=== PATIENT | female | born 1955 | race Caucasian/White ===

== ENCOUNTER 2021-08-22 11:56 | Inpatient (IN) ==
--- NOTE | 2021-08-22 13:36 | Emergency Department Note ---
Impression & Plan Pulmonary edema, Hypoxia ED Provider Note NAME: MONIKA HAGAN AGE: 66 SEX: F : 1955 ARRIVES VIA: Walk-In INFORMANT: Patient, ED PROVIDER(S): Mitesh Fleming DO CHIEF COMPLAINT: Shortness of breath HPI: The patient is a 66-year-old female who was sent to the emergency department from [facility] for evaluation from the pulmonary office. The patient was being seen there because of ongoing symptoms which have worsened since Braulio of last year. She has had multiple tests including echocardiogram as well as pulmonary biopsy. No definite cause for the patient's shortness of breath could be found. The patient was taking all her medications when she was prescribed. According to her consult today she does have a history of hypertension as well as left bundle branch block. She also has a history of COPD and emphysema with tobacco use. The patient denies having any chest pain at this time. She states she has had some lower extremity swelling which is not new but her significant other states that may be worsened compared to previous. She was noted today at the office to have significant desaturation into the 80s despite having supplemental oxygen. She was sent to the emergency department f or evaluation. ROS: See above HPI for pertinent positives & negatives. A total of 10 systems reviewed and were otherwise negative. PAST MEDICAL HISTORY: See Below PAST SURGICAL HISTORY: See Below FAMILY HISTORY: See Below SOCIAL HISTORY: See Below HOME MEDICATIONS: See Below ALLERGIES: See Below VITALS: See Below PHYSICAL EXAMINATION: GENERAL: Patient is awake alert in no acute distress patient is resting comfortably and showing no signs of anxiety EYES: The conjunctivae are clear. The pupils are round and reactive. EARS, NOSE, MOUTH AND THROAT: The nose is without any evidence of any deformity. Mucous membranes are moist. Tongue is midline. NECK: The neck is nontender and supple. RESPIRATORY: Diminished breath sounds are noted throughout. There is wheezing in both upper lung price. CARDIOVASCULAR: Regular rate and rhythm noted there no murmurs rubs or gallops normal S1 normal S2. GASTROINTESTINAL: The abdomen is soft. Abdomen is nontender. MUSCULOSKELETAL/EXTREMITIES: There is no evidence of gross deformity full range of motion is noted in the hips and shoulders. SKIN: Skin is warm and dry. There was mild pedal edema bilaterally. NEUROLOGIC: Patient is awake alert and oriented x3. MEDICAL DECISION MAKING: The patient is a 66-year-old female who presented to the emergency department for an evaluation of difficulty breathing. The patient was seen at the comptometer operator office at [facility] and was sent to the emergency department for further evaluation. The patient was found to have significant hypoxia. She does wear supplemental oxygen but needed escalating amounts of supplemental oxygen to maintain acceptable saturation. I discussed the patient's laboratory and radiographic studies with her. I also discussed the patient's condition with the on-call [facility] hospitalist group. They have agreed to evaluate the patient in the emergency department for further management and disposition. She was treated with Lasix in the emergency department. Triage Nursing notes reviewed. Prior medical records reviewed Vital Signs: reviewed and remarkable for hypoxia and elevated blood pressure. Differential diagnosis: Reactive airway disease, pneumonia, pneumothorax, COPD, CHF, infections, card iac ischemia, pulmonary embolism, musculoskeletal, gastrointestinal, as well as other pathologies. ER treatment provided: See below Diagnostics interpreted by me: ECG: EKG was obtained in the emergency department. My interpretation is sinus rhythm at 70 bpm. There is no ectopy. Left bundle branch block pattern was appreciated. No previous tracing was available. Cardiac Monitoring: An order was placed for continuous cardiac monitoring. The monitor shows a rate of 78 bpm with sinus rhythm. Laboratory studies: As stated above and show below. Imaging studies: See below Consultation(s): I discussed this case with Jeannie who is on-call for the [facility] hospitalist group. Past Med/Surg History Medical History Chronic heart failure with preserved ejection fraction Chronic respiratory failure with hypoxia COPD (chronic obstructive pulmonary disease) Dyslipidemia Emphysema lung Hiatal hernia History of pulmonary hypertension Hypertension Interstitial lung disease Left bundle branch block Pulmonary hypertension Tobacco use Surgical History History of bronchoscopy History of colonoscopy Family History Mother Diabetes Father Homicide Social History (Updated 08/22/21 @ 17:16 by Jeannie Triplett PA-C) Smoking Status: Former smoker Smoking End Date: 2015; Hx Alcohol Use: No Hx Substance Use: No Preferred Language: Niuean Communication Ability: Effective marital status: Current Living Situation: Spouse Feels Safe at Home: Yes Allergies Allergies Allergy/AdvReac Type Severity Reaction Status Date / Time No Known Allergies Allergy Unverified 08/22/21 15:45 Home Meds Home Medications Medication Instructions Recorded Confirmed albuterol sulfate 90 mcg/actuation 2 puff INHALATION QID PRN 08/22/21 08/22/21 aerosol inhaler aspirin 325 mg tablet 325 mg PO DAILY 08/22/21 08/22/21 atorvastatin 20 mg tablet 20 mg PO DAILY 08/22/21 08/22/21 carvedilol 3.125 mg tablet 3.125 mg PO BID 08/22/21 08/22/21 lisinopril 2.5 mg tablet 2.5 mg PO DAILY 08/22/21 08/22/21 multivitamin (Multiple Vitamins) 1 tab PO DAILY 08/22/21 08/22/21 omeprazole 20 mg capsule,delayed 20 mg PO DAILY 08/22/21 08/22/21 release prednisone 20 mg tablet 0 mg PO .DAILY UD 08/22/21 08/22/21 Results & Data (ED) Vital Signs Vital Signs - 24 hr 08/22/21 12:09 08/22/21 12:17 08/22/21 14:42 Temperature 36.9 C Temperature Source Temporal Artery Scan Pulse Rate 88 70 Pulse Rate [Apical] 70 Pulse Rhythm Regular Pulse Rhythm [Apical] Pulse Strength Normal Pulse Strength [Apical] Respiratory Rate 25 H 18 Respiratory Effort / Characteristics Short of Breath Non-Labored Respiratory Depth Respiratory Pattern Regular Blood Pressure 143/98 H Blood Pressure [Left Arm] 132/91 Blood Pressure Mean 113 Blood Pressure Mean [Left Arm] 104 Blood Pressure Position [Left Arm] Pulse Oximetry 86 L 94 100 Oxygen Delivery Method Nasal Cannula Nasal Cannula Room Air Oxygen Flow Rate 4 4 100 Sepsis Recent Fever Within 48 Hours No Sepsis New/Unexplained Change in Mental Status No Sepsis Action Taken by Nursing No Action Required 08/22/21 16:00 Temperature Temperature Source Pulse Rate Pulse Rate [Apical] 78 Pulse Rhythm Pulse Rhythm [Apical] Regular Pulse Strength Pulse Strength [Apical] Normal Respiratory Rate 20 Respiratory Effort / Characteristics Non-Labored Spontaneous Respiratory Depth Normal Respiratory Pattern Regular Blood Pressure Blood Pressure [Left Arm] 157/97 H Blood Pressure Mean Blood Pressure Mean [Left Arm] 117 Blood Pressure Position [Left Arm] Semi-fowlers Pulse Oximetry 98 Oxygen Delivery Method Nasal Cannula Oxygen Flow Rate 4 Sepsis Recent Fever Within 48 Hours Sepsis New/Unexplained Change in Mental Status Sepsis Action Taken by Halfway Medications Current Medication List: was personally reviewed by me Laboratory Data Attestation: I reviewed the patient's lab results. Result diagrams: 08/22/21 14:18 08/22/21 14:18 Lab Results 08/22/21 08/22/21 08/22/21 Range/Units 14:09 14:18 14:18 WBC 8.27 (4.8-10.8) K/uL RBC 5.68 H (4.2-5.4) M/uL Hgb 13.0 (12.0-16.0) g/dL Hct 44.3 (37-47) % MCV 78.0 L (80-100) fL MCH 22.9 L (25-34) pg MCHC 29.3 L (32-36) g/dL RDW Std Deviation 53.1 H (36.4-46.3) fL RDW Coeff of Dionte 18.7 H (11.5-14.5) % Plt Count 207 (130-400) K/uL MPV 10.8 H (7.4-10.4) fL Immature Gran % (Auto) 0.7 % Neut % (Auto) 84.1 % Lymph % (Auto) 13.7 % Wetzel % (Auto) 1.3 % Eos % (Auto) 0.0 % Baso % (Auto) 0.2 % Neut # (Auto) 6.95 H (1.4-6.5) K/uL Lymph # (Auto) 1.13 L (1.2-3.4) K/uL Wetzel # (Auto) 0.11 (0.11-0.59) K/uL Eos # (Auto) 0.00 (0-0.5) K/uL Baso # (Auto) 0.02 (0-0.2) K/uL Immature Gran # (Auto) 0.06 H (0.00-0.02) K/uL Absolute Nucleated RBC 0.22 H (0-0) K/uL Nucleated RBC % (auto) 2.7 % Polychromasia 1+ Anisocytosis Present PT 13.3 H (9.0-12.0) Seconds INR 1.3 H (0.9-1.1) APTT 23.0 (21.0-31.0) Seconds PTT Ratio 0.9 VBG pH (7.36-7.41) VBG pCO2 (38-50) mmHg VBG pO2 mmHg VBG HCO3 mmol/L VBG O2 Saturation % VBG Base Excess mEq/L Barometric Pressure mm/Hg Sodium (136-145) mmol/L Potassium (3.5-5.1) mmol/L Chloride (98-107) mmol/L Carbon Dioxide (21-32) mmol/L Anion Gap (3-11) BUN (6-23) mg/dl Creatinine (0.6-1.2) mg/dl Est Cr Clr Drug Dosing ml/min Est GFR ( Amer) ml/min Est GFR (Non-Af Amer) ml/min BUN/Creatinine Ratio (10-20) Glucose (70-99(Fasting)) mg/dl Calcium (8.5-10.1) mg/dl Magnesium (1.7-2.4) mg/dl Total Bilirubin (0.2-1.0) mg/dl AST (13-39) U/L ALT (7-52) U/L Alkaline Phosphatase (34-104) U/L Troponin I (0-0.04) ng/ml B-Natriuretic Peptide (0-100) pg/ml Total Protein (6.0-8.3) gm/dl Albumin (3.4-5.0) gm/dl Globulin (2.5-4.0) gm/dl Albumin/Globulin Ratio (0.9-2) Procalcitonin (0-0.5) ng/ml TSH (0.300-4.500) uIu/ml SARS-CoV-2, RNA, NAAT NEGATIVE (NEGATIVE) 08/22/21 08/22/21 08/22/21 Range/Units 14:18 14:18 14:18 WBC (4.8-10.8) K/uL RBC (4.2-5.4) M/uL Hgb (12.0-16.0) g/dL Hct (37-47) % MCV (80-100) fL MCH (25-34) pg MCHC (32-36) g/dL RDW Std Deviation (36.4-46.3) fL RDW Coeff of Dionte (11.5-14.5) % Plt Count (130-400) K/uL MPV (7.4-10.4) fL Immature Gran % (Auto) % Neut % (Auto) % Lymph % (Auto) % Wetzel % (Auto) % Eos % (Auto) % Baso % (Auto) % Neut # (Auto) (1.4-6.5) K/uL Lymph # (Auto) (1.2-3.4) K/uL Wetzel # (Auto) (0.11-0.59) K/uL Eos # (Auto) (0-0.5) K/uL Baso # (Auto) (0-0.2) K/uL Immature Gran # (Auto) (0.00-0.02) K/uL Absolute Nucleated RBC (0-0) K/uL Nucleated RBC % (auto) % Polychromasia Anisocytosis PT (9.0-12.0) Seconds INR (0.9-1.1) APTT (21.0-31.0) Seconds PTT Ratio VBG pH (7.36-7.41) VBG pCO2 (38-50) mmHg VBG pO2 mmHg VBG HCO3 mmol/L VBG O2 Saturation % VBG Base Excess mEq/L Barometric Pressure mm/Hg Sodium 135 L (136-145) mmol/L Potassium 4.4 (3.5-5.1) mmol/L Chloride 100 (98-107) mmol/L Carbon Dioxide 30 (21-32) mmol/L Anion Gap 5 (3-11) BUN 22 (6-23) mg/dl Creatinine 0.76 (0.6-1.2) mg/dl Est Cr Clr Drug Dosing 103.4 ml/min Est GFR ( Amer) 95.4 ml/min Est GFR (Non-Af Amer) 82.3 ml/min BUN/Creatinine Ratio 28.9 H (10-20) Glucose 135 H (70-99(Fasting)) mg/dl Calcium 8.5 (8.5-10.1) mg/dl Magnesium 1.9 (1.7-2.4) mg/dl Total Bilirubin 1.0 (0.2-1.0) mg/dl AST 33 (13-39) U/L ALT 30 (7-52) U/L Alkaline Phosphatase 67 (34-104) U/L Troponin I 0.04 (0-0.04) ng/ml B-Natriuretic Peptide (0-100) pg/ml Total Protein 7.5 (6.0-8.3) gm/dl Albumin 3.4 (3.4-5.0) gm/dl Globulin 4.1 H (2.5-4.0) gm/dl Albumin/Globulin Ratio 0.8 L (0.9-2) Procalcitonin < 0.05 (0-0.5) ng/ml TSH 1.176 (0.300-4.500) uIu/ml SARS-CoV-2, RNA, NAAT (NEGATIVE) 08/22/21 08/22/21 Range/Units 14:25 14:25 WBC (4.8-10.8) K/uL RBC (4.2-5.4) M/uL Hgb (12.0-16.0) g/dL Hct (37-47) % MCV (80-100) fL MCH (25-34) pg MCHC (32-36) g/dL RDW Std Deviation (36.4-46.3) fL RDW Coeff of Dionte (11.5-14.5) % Plt Count (130-400) K/uL MPV (7.4-10.4) fL Immature Gran % (Auto) % Neut % (Auto) % Lymph % (Auto) % Wetzel % (Auto) % Eos % (Auto) % Baso % (Auto) % Neut # (Auto) (1.4-6.5) K/uL Lymph # (Auto) (1.2-3.4) K/uL Wetzel # (Auto) (0.11-0.59) K/uL Eos # (Auto) (0-0.5) K/uL Baso # (Auto) (0-0.2) K/uL Immature Gran # (Auto) (0.00-0.02) K/uL Absolute Nucleated RBC (0-0) K/uL Nucleated RBC % (auto) % Polychromasia Anisocytosis PT (9.0-12.0) Seconds INR (0.9-1.1) APTT (21.0-31.0) Seconds PTT Ratio VBG pH 7.37 (7.36-7.41) VBG pCO2 49 (38-50) mmHg VBG pO2 75 mmHg VBG HCO3 28 mmol/L VBG O2 Saturation 94.8 % VBG Base Excess 2.1 mEq/L Barometric Pressure 735.8 mm/Hg Sodium (136-145) mmol/L Potassium (3.5-5.1) mmol/L Chloride (98-107) mmol/L Carbon Dioxide (21-32) mmol/L Anion Gap (3-11) BUN (6-23) mg/dl Creatinine (0.6-1.2) mg/dl Est Cr Clr Drug Dosing ml/min Est GFR ( Amer) ml/min Est GFR (Non-Af Amer) ml/min BUN/Creatinine Ratio (10-20) Glucose (70-99(Fasting)) mg/dl Calcium (8.5-10.1) mg/dl Magnesium (1.7-2.4) mg/dl Total Bilirubin (0.2-1.0) mg/dl AST (13-39) U/L ALT (7-52) U/L Alkaline Phosphatase (34-104) U/L Troponin I (0-0.04) ng/ml B-Natriuretic Peptide 1055 H (0-100) pg/ml Total Protein (6.0-8.3) gm/dl Albumin (3.4-5.0) gm/dl Globulin (2.5-4.0) gm/dl Albumin/Globulin Ratio (0.9-2) Procalcitonin (0-0.5) ng/ml TSH (0.300-4.500) uIu/ml SARS-CoV-2, RNA, NAAT (NEGATIVE) Administered Medications Discontinued Medications Furosemide (Furosemide 40 Mg/4 Ml Vial) 40 mg IV ONE ONE Stop: 08/22/21 15:26 Last Admin: 08/22/21 16:25 Dose: 40 mg Documented by: [id number] Imaging Data Radiologist's Impression: Chest X-Ray 08/22/21 12:13 XR chest 1V portable HISTORY: Shortness of breath COMPARISON: None. FINDINGS: No pneumothorax. Trace bilateral pleural fusions. The heart is enlarged. There is diffuse interstitial/vascular thickening with perihilar hazy airspace opacities. This favors moderate pulmonary edema. IMPRESSION: Above findings favor moderate pulmonary edema. A superimposed pneumonitis could also have a similar appearance in the appropriate clinical setting. ACT 112: Negative or not required by law. Electronically signed by: Chalino Wallace M.D. 08/22/2021 2:22 PM Discharge Plan Visit Data Chief Complaint: Shortness of Breath/Dyspnea Stated Complaint: SOB, BIOPSIES, SUSPECTED FLUID IN LUNGS ED Provider: Mitesh Fleming Discharge Problem: Pulmonary edema, Hypoxia Patient Disposition: Being Evaluated by Hospitalist
--- NOTE | 2021-08-22 14:23 | XRay Report ---
XR chest 1V portable HISTORY: Shortness of breath COMPARISON: None. FINDINGS: No pneumothorax. Trace bilateral pleural fusions. The heart is enlarged. There is diffuse i nterstitial/vascular thickening with perihilar hazy airspace opacities. This favors moderate pulmonar y edema. IMPRESSION: Above findings favor moderate pulmonary edema. A superimposed pneumonitis could also have a similar a ppearance in the appropriate clinical setting. ACT 112: Negative or not required by law. Electronically signed by: Chalino Wallace M.D. 08/22/2021 2:22 PM
[2021-08-22 14:27] LABS: Basophils # (auto) 0.02 K/uL (0-0.2); Basophils % (auto) 0.2 %; Hematocrit (blood only) 44.3 % (37-47); Immature Granulocytes # (auto) 0.06 K/uL (0.00-0.02); Immature Granulocytes % (auto) 0.7 %; Lymphocytes # (auto) 1.13 K/uL (1.2-3.4); Lymphocytes % (auto) 13.7 %; Mean Corpuscular Hemoglobin 22.9 pg (25-34); Mean Corpuscular Hgb Conc 29.3 g/dL (32-36); Mean Platelet Volume 10.8 fL (7.4-10.4); Monocytes # (auto) 0.11 K/uL (0.11-0.59); Monocytes % (auto) 1.3 %; Neutrophils # (auto) 6.95 K/uL (1.4-6.5); Neutrophils % (auto) 84.1 %; Nucleated RBC # (auto) 0.22 K/uL (0-0); Nucleated RBC % (auto) 2.7 %; Platelet Count 207 K/uL (130-400); RDW Coefficient of Variation 18.7 % (11.5-14.5); RDW Standard Deviation 53.1 fL (36.4-46.3); Red Blood Count 5.68 M/uL (4.2-5.4); White Blood Count 8.27 K/uL (4.8-10.8)
[2021-08-22 14:40] LABS: INR 1.3 (0.9-1.1); Partial Thromboplastin Ratio 0.9; Prothrombin Time 13.3 Seconds (9.0-12.0)
[2021-08-22 14:42] LABS: Anisocytosis Present; Polychromasia 1+
[2021-08-22 14:47] LABS: Base Excess VBG 2.1 mEq/L; Oxygen Saturation VBG 94.8 %; pH VBG 7.37 (7.36-7.41)
[2021-08-22 14:54] LABS: Albumin Globulin Ratio 0.8 (0.9-2); Albumin Level 3.4 gm/dl (3.4-5.0); BUN Creatinine Ratio 28.9 (10-20); Calcium 8.5 mg/dl (8.5-10.1); Creatinine Clr Calc Pharmacy 103.4 ml/min; Est GFR (African American) 95.4 ml/min; Est GFR (Non-African American) 82.3 ml/min; Globulin 4.1 gm/dl (2.5-4.0); Magnesium 1.9 mg/dl (1.7-2.4); Potassium 4.4 mmol/L (3.5-5.1); Total Protein 7.5 gm/dl (6.0-8.3)
[2021-08-22 14:56] LABS: Troponin I 0.04 ng/ml (0-0.04)
[2021-08-22] MEDS ORDERED: FUROSEMIDE 40 MG/4 ML VIAL IV ONE (15:25)
--- NOTE | 2021-08-22 16:50 | Electrocardiogram Report ---
Test Reason : Blood Pressure : / mmHG Vent. Rate : 078 BPM Atrial Rate : 078 BPM P-R Int : 124 ms QRS Dur : 130 ms QT Int : 398 ms P-R-T Axes : 072 011 138 degrees QTc Int : 453 ms Poor data quality, interpretation may be adversely affected Normal sinus rhythm Possible Left atrial enlargement Non-specific intra-ventricular conduction block T wave abnormality, consider lateral ischemia Abnormal ECG No previous ECGs available Confirmed by Asher Osman ([id number]) on 08/22/2021 4:50:27 PM Referred By: Confirmed By:Bharat Osman
--- NOTE | 2021-08-22 17:22 | History & Physical Report ---
Date of Service August 22, 2021 Assessment & Plan (1) Acute on chronic heart failure with preserved ejection fraction (HFpEF): (2) Acute and chronic respiratory failure with hypoxia: (3) Interstitial lung disease: (4) Hypertension: (5) Left bundle branch block: Plan: This a 66 yr old F who has a significant PMH of ILD on 4L of O2 with ext and 2 at HS, chronic hypoxic resp failure, Chronic HFpEF, Pulm HTN, COPD, former tobacco abuser, HTN, HLD, LBBB who presents to ED at referral of Pulm clinic 08/03 to hypoxia. Acute on chronic heart failure with preserved ejection fraction Acute on chronic Resp Failure with hypoxia admit to pcu Received 40mg IV lasix in ED, will give additional 40mgIV lasix in a.m. until re evaluated strict intake/output, daily weights, low Na diet will taper down prednisone to 20mg daily as may be contributing to retention ( PCP prescribed pred 40mg x 16 days; then 20mg x 15 days then 10mg x 15 days for generalized aches/pain/ILD) - starting 08/19 last echo 06/21 EF 55%, grade 1 diastolic dysfunction, pulmonary hypertension, elevated PASP, mild TR Monitor electrolytes Continue carvedilol and lisinopril consult cardiology cycle trop Interstitial lung disease Pro-Jimmy negative, likely noninfectious Following pulmonology, had bronchoscopy on 08/08 with negative cytology Etiology still unclear continue albuterol prn continue O2, chronically 2L at HS and 4L with exertion HTN HLD LBBB continue asa, statin, lisinopril, coreg Morbid obesity, BMI 47.3 encourage diet and lifestyle modifications DVT ppx: SQ Lovenox BID Dispo: pcu PCP: Sharon Castellanos FULL CODE Pt was seen and examined in collaboration with Dr. Giles, please see addendum The chart was completed utilizing [employer] voice recognition software. Grammatical errors, random word insertions, pronoun errors, and incomplete sentences are an occasional consequence of this system due to software limitations, ambient noise, and hardware issues. Any formal questions or concerns about the content, text, or information contained within the body of this dictation should be directly addressed to the provider for clarification. History of Present Illness Chief Complaint: Referred by pulm clinic 08/03 to hypoxia. Primary Care Provider: Babar Queen MD This a 66 yr old F who has a significant PMH of ILD on 4L of O2 with ext and 2 at HS, chronic hypoxic resp failure, Chronic HFpEF, Pulm HTN, COPD, former tobacco abuser, HTN, HLD, LBBB who presents to ED at referral of Pulm clinic 08/03 to hypoxia. Patient has been followed closely by pulmonology secondary to interstitial lung disease. She recently underwent bronchoscopy on 08/08 with negative cytology. Per patient the etiology of interstitial lung disease is not known. She states since June 2021 she has been having increasing difficulty breathing. She has had extensive work-up with pulmonology. Echo in June 2021 revealed preserved EF with diastolic dysfunction, pulmonary pretension and mild tricuspid rotation. States since June she has been having increased shortness of breath with exertion, increased lower extremity swelling and weight gain. In the past week she admits to 5 pound weight gain. Denies any orthopnea or PND, but states she is, "choking in her sleep." She denies any prior history of sleep apnea or being tested for sleep apnea. She complains of a wet cough that is nonproductive. This is chronic. She denies any fever, chills, sweats, lightheadedness, dizziness, chest pain, palpitations, hemoptysis, nausea, vomiting, abdominal pain, change in bowel or urinary habits. She was recently seen by PCP on 08/19 who prescribed her a prolonged prednisone taper. Currently she is on 40 mg daily. She states she was started on prednisone due to generalized aches and pains and to, "help with my lungs." She has been compliant with her medications. She does recall in the past requiring to take Lasix for 1 week, but not on a regular basis. In ED patient made hemodynamically stable although she was hypoxic. She required 4 L of oxygen. Chest x-ray consistent with moderate pulmonary edema. She elevated proBNP at 1055. Her initial troponin was negative. She received 40 mg IV Lasix in ED. Allergies Allergy/AdvReac Type Severity Reaction Status Date / Time No Known Allergies Allergy Unverified 08/22/21 15:45 Home Medications Medication Instructions Recorded Confirmed Type albuterol sulfate 90 mcg/actuation 2 puff INHALATION QID PRN 08/22/21 08/22/21 History aerosol inhaler aspirin 325 mg tablet 325 mg PO DAILY 08/22/21 08/22/21 History atorvastatin 20 mg tablet 20 mg PO DAILY 08/22/21 08/22/21 History carvedilol 3.125 mg tablet 3.125 mg PO BID 08/22/21 08/22/21 History lisinopril 2.5 mg tablet 2.5 mg PO DAILY 08/22/21 08/22/21 History multivitamin (Multiple Vitamins) 1 tab PO DAILY 08/22/21 08/22/21 History omeprazole 20 mg capsule,delayed 20 mg PO DAILY 08/22/21 08/22/21 History release prednisone 20 mg tablet 0 mg PO .DAILY UD 08/22/21 08/22/21 History Past Med/Surg History Medical History Chronic heart failure with preserved ejection fraction Chronic respiratory failure with hypoxia COPD (chronic obstructive pulmonary disease) Dyslipidemia Emphysema lung Hiatal hernia History of pulmonary hypertension Hypertension Interstitial lung disease Left bundle branch block Pulmonary hypertension Tobacco use Surgical History History of bronchoscopy History of colonoscopy Family History Mother Diabetes Father Homicide Social History (Updated 08/22/21 @ 17:16 by Jeannie Triplett PA-C) Smoking Status: Former smoker Smoking End Date: 2015; Hx Alcohol Use: No Hx Substance Use: No Preferred Language: [place]amb[place] Communication Ability: Effective marital status: Current Living Situation: Spouse Feels Safe at Home: Yes Review of Systems Review of Systems: All systems reviewed & are unremarkable except as noted in HPI & below Physical Exam Physical Exam: Constitutional: WD/WN, Obese, F, dysnea w/ conversation, vitals as above, NAD, sitting up in bed, pleasant, conversing easily Head: Normocephalic, Atraumatic Eyes: PERRL, conjunctivae normal, anicteric sclerae ENMT: external ear and nose normal, oropharynx normal Neck: trachea midline, no thyromegaly normal visual inspection Respiratory: normal respiratory effort, course breathsounds throughout with exp wheeze/rales, on 4L of O2 via NC. Normal insp/exp effort, no accessory muscle use Cardiovascular: RRR, no murmur, b/l lower ext edema +2, b/l varicosities noted Vessels: no JVD or carotid bruit Chest: normal inspection of chest Abdomen: normal bowel sounds, soft, nontender, no hepatosplenomegaly Musculoskeletal: no cyanosis or clubbing, extremities motor strength 5/5 Skin: no rashes, warm and dry normal turgor Neurologic: PERRL, EOMI, accommodation nl, no face palsy, no dysarthria CN's II-XI intact bilaterally and moves all extremities Psychiatric: A+Ox3, euthymic affect Lymphatic: no cervical or axillary lymphadenopathy : deferred Results & Data Results & Data ([facility]) Vital Signs (Past 12 Hours) Vital Signs Temp Pulse Pulse Resp BP BP Pulse Ox 08/22/21 16:00 78 20 157/97 H 98 08/22/21 14:42 70 70 18 132/91 100 08/22/21 12:17 94 08/22/21 12:09 36.9 C 88 25 H 143/98 H 86 L Diagnostic Findings Chest X-Ray 08/22/21 12:13 XR chest 1V portable HISTORY: Shortness of breath COMPARISON: None. FINDINGS: No pneumothorax. Trace bilateral pleural fusions. The heart is enlarged. There is diffuse interstitial/vascular thickening with perihilar hazy airspace opacities. This favors moderate pulmonary edema. IMPRESSION: Above findings favor moderate pulmonary edema. A superimposed pneumonitis could also have a similar appearance in the appropriate clinical setting. ACT 112: Negative or not required by law. Electronically signed by: Chalino Wallace M.D. 08/22/2021 2:22 PM Medications Administered Medication List Discontinued Medications Furosemide (Furosemide 40 Mg/4 Ml Vial) 40 mg IV ONE ONE Stop: 08/22/21 15:26 Last Admin: 08/22/21 16:25 Dose: 40 mg Documented by: [id number] ECG Rate (beats per minute): 78 Rhythm: normal sinus Findings: + LBBB and + T-wave inversion COVID-19 Results Results COVID-19 Adm Lab Results: RBC 5.68 M/uL (4.2-5.4) H 08/22/21 WBC 8.27 K/uL (4.8-10.8) 08/22/21 Hgb 13.0 g/dL (12.0-16.0) 08/22/21 Hct 44.3 % (37-47) 08/22/21 Plt Count 207 K/uL (130-400) 08/22/21 Neutrophils (%) (Auto) 84.1 % 08/22/21 Lymphocytes (%) (Auto) 13.7 % 08/22/21 Monocytes # (Auto) 0.11 K/uL (0.11-0.59) 08/22/21 Eosinophils # (Auto) 0.00 K/uL (0-0.5) 08/22/21 Immature Granulocyte % (Auto) 0.7 % 08/22/21 Neutrophils # (Auto) 6.95 K/uL (1.4-6.5) H 08/22/21 Lymphocytes # (Auto) 1.13 K/uL (1.2-3.4) L 08/22/21 Monocytes # (Auto) 0.11 K/uL (0.11-0.59) 08/22/21 Eosinophils # (Auto) 0.00 K/uL (0-0.5) 08/22/21 Basophils # (Auto) 0.02 K/uL (0-0.2) 08/22/21 Immature Granulocyte # (Auto) 0.06 K/uL (0.00-0.02) H 08/22/21 Polychromasia 1+ 08/22/21 Anisocytosis Present 08/22/21 Na 135 mmol/L (136-145) L 08/22/21 K 4.4 mmol/L (3.5-5.1) 08/22/21 Cl 100 mmol/L (98-107) 08/22/21 CO2 30 mmol/L (21-32) 08/22/21 Anion Gap 5 (3-11) 08/22/21 BUN 22 mg/dl (6-23) 08/22/21 Creatinine 0.76 mg/dl (0.6-1.2) 08/22/21 BUN/Creatinine Ratio 28.9 (10-20) H 08/22/21 Glucose Level 135 mg/dl (70-99(Fasting)) H 08/22/21 Ca 8.5 mg/dl (8.5-10.1) 08/22/21 Total Bilirubin 1.0 mg/dl (0.2-1.0) 08/22/21 AST/SGOT 33 U/L (13-39) 08/22/21 ALT/SGPT 30 U/L (7-52) 08/22/21 Alkaline Phosphatase 67 U/L (34-104) 08/22/21 Total Protein 7.5 gm/dl (6.0-8.3) 08/22/21 Albumin 3.4 gm/dl (3.4-5.0) 08/22/21 Globulin 4.1 gm/dl (2.5-4.0) H 08/22/21 Albumin/Globulin Ratio 0.8 (0.9-2) L 08/22/21 Troponin I 0.04 ng/ml (0-0.04) 08/22/21 Procalcitonin < 0.05 ng/ml (0-0.5) 08/22/21 PTT 23.0 Seconds (21.0-31.0) 08/22/21 INR 1.3 (0.9-1.1) H 08/22/21 SARS-CoV-2, RNA, NAAT NEGATIVE (NEGATIVE) 08/22/21 Chest X-Ray 08/22/21 Code Status & VTE Plan Code Status FULL CODE VTE Prophylaxis Plan VTE Prophylaxis will be ordered: Yes Supervising Physician Co-Signing Physician Notes Patient is a 66-year-old female with history of interstitial lung disease, chronic oxygen dependency, COPD, tobacco use disorder, chronic diastolic heart failure and other medical problems presents with history of worsening shortness of breath, presents for evaluation on referral from pulmonary clinic secondary to hypoxia. Patient is on chronic oxygen, 2 L at rest and 4 L with activity. Patient was evaluated by pulmonary clinic and had recent bronchoscopy which was negative for cytology. Patient reports that she has been having worsening shortness of breath, associated with leg swelling and weight gain. Patient's PCP thought that she had sarcoidosis (as per patient) and she was started on a long course of prednisone taper. Please review HPI for complete details of presentation. Blood work suggestive of INR 1.3, sodium 135, glucose 135, BNP 1055, normal procalcitonin levels. Chest x-ray showed findings suggestive of moderate pulmonary edema. On exam patient is morbidly obese, no apparent distress, normocephalic atraumatic, EOMI, coarse decreased breath sounds, scattered wheezes, S1-S2, bilateral lower extremity edema present, abdomen soft, nontender, normal bowel sounds, alert, awake, oriented, grossly no focal deficits. Patient is admitted for management of acute on chronic respiratory failure with hypoxia. Likely multifactorial secondary to acute diastolic heart failure, interstitial lung disease. Agree with starting on IV diuretics 40 mg Lasix daily. Monitor I's and O's, daily weight, low-sodium diet. Cardiology evaluation requested. Trend cardiac enzymes. Will need further evaluation by pulmonology/rheumatology help etiology of interstitial lung disease. Will need 2 step prior to discharge. Prolonged steroids likely contributing to above symptoms as well. Will taper down steroids as able. I personally reviewed the record. Patient is interviewed and examined at bedside. Patient's care is coordinated with Jeannie Triplett PA-C. Please refer to the documentation above for details of patient's presentation and for discussion of other issues.
[2021-08-22] MEDS ORDERED: POLYETHYLENE (MIRALAX) 17 GM PACK PO PRN (18:21)
[2021-08-22] MEDS ORDERED: CARBOHYDRATES FOR HYPOGLYCEMIA PO PRN (18:21)
[2021-08-22] MEDS ORDERED: DEXTROSE 50% 50 ML SYRINGE IV PRN (18:21)
[2021-08-22] MEDS ORDERED: GLUCOSE 40% GEL 15 GM TUBE PO PRN (18:21)
[2021-08-22] MEDS ORDERED: ACETAMINOPHEN 325 MG TAB PO PRN (18:21)
[2021-08-22] MEDS ORDERED: GLUCOSE 10 TABS/TUBE PO PRN (18:21)
[2021-08-22] MEDS ORDERED: ALUMINUM/MAGNESIUM SUSP 30 ML UDC PO PRN (18:21)
[2021-08-22] MEDS ORDERED: ONDANSETRON INJ 2 MG/ML 2 ML VIAL IV PRN (18:21)
[2021-08-22] MEDS ORDERED: ALBUTEROL HFA 8 GM INHALER INH PRN (18:21)
[2021-08-22] MEDS ORDERED: GLUCAGON FOR INJ 1 MG VIAL SQ PRN (18:21)
[2021-08-22] MEDS ORDERED: MAGNESIUM HYDROXIDE SUSP 30 ML UDC PO PRN (18:21)
[2021-08-22] MEDS: carvediloL 3.125 MG TAB PO SCH (21:18)
[2021-08-22] MEDS: INSULIN ASPART PER UNIT SC SCH (21:24)
[2021-08-22] MEDS: ENOXAPARIN INJ 40 MG/0.4 ML SYR SQ SCH (21:26)
[2021-08-23 05:50] LABS: Hematocrit (blood only) 43.5 % (37-47); Hemoglobin 12.6 g/dL (12.0-16.0); Mean Corpuscular Volume 79.5 fL (80-100); Nucleated RBC # (auto) 0.11 K/uL (0-0); Nucleated RBC % (auto) 1.1 %; Platelet Count 199 K/uL (130-400); RDW Coefficient of Variation 18.9 % (11.5-14.5); Red Blood Count 5.47 M/uL (4.2-5.4); White Blood Count 9.77 K/uL (4.8-10.8)
[2021-08-23 06:11] LABS: BUN Creatinine Ratio 27.9 (10-20); Calcium 8.5 mg/dl (8.5-10.1); Creatinine Clr Calc Pharmacy 115.6 ml/min; Est GFR (African American) 106.4 ml/min; Est GFR (Non-African American) 91.8 ml/min; Potassium 3.8 mmol/L (3.5-5.1)
[2021-08-23] MEDS: PANTOprazole 40 MG TAB PO SCH (08:19)
[2021-08-23] MEDS: carvediloL 3.125 MG TAB PO SCH (08:20)
[2021-08-23] MEDS: ASPIRIN 325 MG ECTAB PO SCH (08:20)
[2021-08-23] MEDS: MULTIVITAMIN TAB PO SCH (08:20)
[2021-08-23] MEDS: ATORVASTATIN 20 MG TAB PO SCH (08:20)
[2021-08-23] MEDS: predniSONE 20 MG TAB PO SCH (08:21)
[2021-08-23] MEDS: FUROSEMIDE 40 MG/4 ML VIAL IV SCH (08:21)
[2021-08-23] MEDS: ENOXAPARIN INJ 40 MG/0.4 ML SYR SQ SCH ×2 (08:25→20:38)
[2021-08-23] MEDS: INSULIN ASPART PER UNIT SC SCH ×4 (09:00→20:37)
[2021-08-23] MEDS ORDERED: lisinopril 2.5 MG TAB PO SCH (09:00)
--- NOTE | 2021-08-23 09:28 | Cardiology Consultation ---
Date of Consultation August 23, 2021 Assessment & Plan (1) Interstitial lung disease: (2) Chronic respiratory failure with hypoxia: (3) Tobacco use: (4) Chronic heart failure with preserved ejection fraction: (5) History of pulmonary hypertension: (6) Left bundle branch block: (7) Hypoxia: Complex 66 year old female referred for hospitalization due to concern regarding acute on chronic decompensated heart failure with preserved LV systolic function. Administration of 40 mg IV Lasix on presentation resulted in 2000 mL diuresis, without improvement in symptoms. Examination notable for possible mild volume overload though certainly not plethoric. Initial troponin I was 0.04 ng/mL then 0.12 ng/mL without symptoms suggestive of an acute coronary syndrome. Main issue appears to be underlying significant pulmonary disease. Recommendations: Serial cardiac enzymes Resting echocardiogram Cautious diuresis with IV furosemide, possibly adding low dose spironolactone pending potassium needs Change carvedilol to metoprolol succinate 25 mg once per day Change SUNNY inhibitor therapy (lisinopril) to losartan with dosage escalated for additional blood pressure control. Recommend further evaluation/treatment of the interstitial lung disease Recommend outpatient sleep medicine evaluation. Supervising Physician Co-Signing Physician Notes Patient seen and examined at the bedside. Respiratory status improved with intravenous diuretic therapy. Fluid balance -4200 cc since admission. Carries diagnosis of interstitial lung disease and chronic hypoxia. Denies orthopnea or PND. Notes recent weight gain and worsening edema. is present at bedside. Offers no additional concerns/complaints. PE: VSS. Gen: NAD. AAOx3. Heart: Regular rhythm, normal S1-S2. No murmur. Lungs: Diffuse crackles in all lung price bilaterally. Mild end expiratory wheeze. Extremities: 1+ bilateral ankle and pretibial edema. Neurologic: No focal deficit. A/P: Agree with above PA-C history, physical exam, assessment and plan. Continue cautious diuresis with IV furosemide. Serum bicarbonate trending upward slightly after IV Lasix. Monitor daily weight, GFR, and electrolytes. Agree with transition of carvedilol to metoprolol due to underlying interstitial lung disease with expiratory wheeze. Consider pulmonary evaluation regarding interstitial lung disease. History of Present Illness Reason for Consultation: Acute on chronic heart failure with preserved left ventricular systolic function Requesting Physician: Ioana Attending Physician: Jonathon History of Present Illness Mrs. Karli Alexander is a very pleasant 66-year-old female who was referred to the [facility] Emergency Room by [facility] due to worsening shortness of breath, hypoxia, volume overload. Cardiology consultation requested due to acute on chronic heart failure with preserved LV systolic function. History notable for chronic oxygen dependent interstitial and obstructive lung disease with history of tobacco abuse, chronic diastolic heart failure, history of systolic congestive heart failure with a left bundle branch block. Diagnostic cardiac catheterization performed by Dr. Roach on December 09, 2008 revealing minimal luminal irregularities, LVEF 45%, mildly elevated LVEDP. Resting echocardiography last on June 22, 2021 revealed normal LV systolic function, ejection fraction 55 to 59%, with normal LV wall motion, grossly normal RV systolic function, grade 1 diastolic dysfunction, mild tricuspid regurgitation, mild pulmonary hypertension with a pulmonary artery systolic pressure of 36 to 46 mmHg. Patient notes pneumonia in June. Notes being treated with two courses of prednisone. Notes 15 pound weight gain since June. She did not believe there was a significant amount of fluid however she notes that her was concerned regarding increased fluid retention in her lower extremities. Patient believes the fluid is predominantly in her abdomen. She has a predominantly nonproductive cough that is worse at night, improved with the addition prior addition of supplemental oxygen therapy. She denies PND. She has chronic stable orthopnea. On questioning, witnessed snoring and hypersomnolence noted, without prior sleep apnea evaluation. No chest pain. Notes palpitations on exertion are promptly aided by rest, significantly better when utilizing supplemental oxygen. Notes lightheadedness/dizziness with significant coughing spells, without near syncope or syncope. No current fevers or chills. No melena or hematochezia. IV furosemide prescribed, 40 mg daily, with 2 L diuresis recorded, without change in symptoms. Allergies Allergy/AdvReac Type Severity Reaction Status Date / Time No Known Allergies Allergy Unverified 08/22/21 15:45 Home Medications Medication Instructions Recorded Confirmed Type albuterol sulfate 90 mcg/actuation 2 puff INHALATION QID PRN 08/22/21 08/22/21 History aerosol inhaler aspirin 325 mg tablet 325 mg PO DAILY 08/22/21 08/22/21 History atorvastatin 20 mg tablet 20 mg PO DAILY 08/22/21 08/22/21 History carvedilol 3.125 mg tablet 3.125 mg PO BID 08/22/21 08/22/21 History lisinopril 2.5 mg tablet 2.5 mg PO DAILY 08/22/21 08/22/21 History multivitamin (Multiple Vitamins) 1 tab PO DAILY 08/22/21 08/22/21 History omeprazole 20 mg capsule,delayed 20 mg PO DAILY 08/22/21 08/22/21 History release prednisone 20 mg tablet 0 mg PO .DAILY UD 08/22/21 08/22/21 History Patient History Medical History Chronic heart failure with preserved ejection fraction Chronic respiratory failure with hypoxia COPD (chronic obstructive pulmonary disease) Dyslipidemia Emphysema lung Hiatal hernia History of pulmonary hypertension Hypertension Interstitial lung disease Left bundle branch block Pulmonary hypertension Tobacco use Surgical History History of bronchoscopy History of colonoscopy Family History Mother Diabetes Father Homicide Social History Smoking Status: Former smoker Smoking End Date: 2015; Hx Alcohol Use: No Hx Substance Use: No Preferred Language: Citizen Of [place] Communication Ability: Effective Research Home Economist Required: No Beliefs That Will Affect Care: None marital status: Current Living Situation: Spouse Other Information That Helps Us Care for You: No Feels Safe at Home: Yes Safety Concerns: Feels Safe At This Time Assistive Devices: Oxygen - Continuous Review of Systems Review of Systems: Complete review of systems is otherwise as stated above, negative, noncontributory. Physical Exam Physical Exam: General: A&Ox3. NAD. Elevated BMI. HENT: Normocephalic. Atraumatic. Eyes: PER. Conjunctiva pink, sclera clear. Neck: No carotid bruits. I could not appreciate any JVD or HJR n Heart: Regular at 90 bpm. No murmur. No rub. Lungs: Diminished. Decreased. Diffuse dry crackles. No wheeze. SPO2 was 89% on supplemental oxygen Abdomen: +BS. Somewhat firm. Nontender. No masses or organomegaly. Extremities: Chronic varicosities. Minimal edema. No clubbing. No cyanosis. Limited neurological examination is without focal deficits. Pulses: radial=2/4, posterior tibial=1/4. Results & Data ([facility]) Vital Signs (Past 12 Hours) Vital Signs Pulse Resp BP Pulse Ox 08/23/21 04:22 79 22 147/88 H 93 08/23/21 00:00 79 20 137/83 97 08/22/21 22:00 79 20 143/81 H 98 Laboratory Results Laboratory Results - last 24 hr 08/22/21 08/22/21 08/22/21 14:09 14:18 14:18 WBC 8.27 RBC 5.68 H Hgb 13.0 Hct 44.3 MCV 78.0 L MCH 22.9 L MCHC 29.3 L RDW Std Deviation 53.1 H RDW Coeff of Dionte 18.7 H Plt Count 207 MPV 10.8 H Immature Gran % (Auto) 0.7 Neut % (Auto) 84.1 Lymph % (Auto) 13.7 Putnam % (Auto) 1.3 Eos % (Auto) 0.0 Baso % (Auto) 0.2 Neut # (Auto) 6.95 H Lymph # (Auto) 1.13 L Putnam # (Auto) 0.11 Eos # (Auto) 0.00 Baso # (Auto) 0.02 Immature Gran # (Auto) 0.06 H Absolute Nucleated RBC 0.22 H Nucleated RBC % (auto) 2.7 Polychromasia 1+ Anisocytosis Present PT 13.3 H INR 1.3 H APTT 23.0 PTT Ratio 0.9 VBG pH VBG pCO2 VBG pO2 VBG HCO3 VBG O2 Saturation VBG Base Excess Barometric Pressure Sodium Potassium Chloride Carbon Dioxide Anion Gap BUN Creatinine Est Cr Clr Drug Dosing Est GFR ( Amer) Est GFR (Non-Af Amer) BUN/Creatinine Ratio Glucose POC Glucose Calcium Magnesium Total Bilirubin AST ALT Alkaline Phosphatase Troponin I B-Natriuretic Peptide Total Protein Albumin Globulin Albumin/Globulin Ratio Procalcitonin TSH SARS-CoV-2, RNA, NAAT NEGATIVE 08/22/21 08/22/21 08/22/21 14:18 14:18 14:18 WBC RBC Hgb Hct MCV MCH MCHC RDW Std Deviation RDW Coeff of Dionte Plt Count MPV Immature Gran % (Auto) Neut % (Auto) Lymph % (Auto) Putnam % (Auto) Eos % (Auto) Baso % (Auto) Neut # (Auto) Lymph # (Auto) Putnam # (Auto) Eos # (Auto) Baso # (Auto) Immature Gran # (Auto) Absolute Nucleated RBC Nucleated RBC % (auto) Polychromasia Anisocytosis PT INR APTT PTT Ratio VBG pH VBG pCO2 VBG pO2 VBG HCO3 VBG O2 Saturation VBG Base Excess Barometric Pressure Sodium 135 L Potassium 4.4 Chloride 100 Carbon Dioxide 30 Anion Gap 5 BUN 22 Creatinine 0.76 Est Cr Clr Drug Dosing 103.4 Est GFR ( Amer) 95.4 Est GFR (Non-Af Amer) 82.3 BUN/Creatinine Ratio 28.9 H Glucose 135 H POC Glucose Calcium 8.5 Magnesium 1.9 Total Bilirubin 1.0 AST 33 ALT 30 Alkaline Phosphatase 67 Troponin I 0.04 B-Natriuretic Peptide Total Protein 7.5 Albumin 3.4 Globulin 4.1 H Albumin/Globulin Ratio 0.8 L Procalcitonin < 0.05 TSH 1.176 SARS-CoV-2, RNA, NAAT 08/22/21 08/22/21 08/22/21 14:25 14:25 19:38 WBC RBC Hgb Hct MCV MCH MCHC RDW Std Deviation RDW Coeff of Dionte Plt Count MPV Immature Gran % (Auto) Neut % (Auto) Lymph % (Auto) Putnam % (Auto) Eos % (Auto) Baso % (Auto) Neut # (Auto) Lymph # (Auto) Putnam # (Auto) Eos # (Auto) Baso # (Auto) Immature Gran # (Auto) Absolute Nucleated RBC Nucleated RBC % (auto) Polychromasia Anisocytosis PT INR APTT PTT Ratio VBG pH 7.37 VBG pCO2 49 VBG pO2 75 VBG HCO3 28 VBG O2 Saturation 94.8 VBG Base Excess 2.1 Barometric Pressure 735.8 Sodium Potassium Chloride Carbon Dioxide Anion Gap BUN Creatinine Est Cr Clr Drug Dosing Est GFR ( Amer) Est GFR (Non-Af Amer) BUN/Creatinine Ratio Glucose POC Glucose Calcium Magnesium Total Bilirubin AST ALT Alkaline Phosphatase Troponin I 0.12 H* B-Natriuretic Peptide 1055 H Total Protein Albumin Globulin Albumin/Globulin Ratio Procalcitonin TSH SARS-CoV-2, RNA, NAAT 08/22/21 08/23/21 08/23/21 21:22 05:19 05:19 WBC 9.77 RBC 5.47 H Hgb 12.6 Hct 43.5 MCV 79.5 L MCH 23.0 L MCHC 29.0 L RDW Std Deviation 55.0 H RDW Coeff of Dionte 18.9 H Plt Count 199 MPV Immature Gran % (Auto) Neut % (Auto) Lymph % (Auto) Putnam % (Auto) Eos % (Auto) Baso % (Auto) Neut # (Auto) Lymph # (Auto) [place] # (Auto) Eos # (Auto) Baso # (Auto) Immature Gran # (Auto) Absolute Nucleated RBC 0.11 H Nucleated RBC % (auto) 1.1 Polychromasia Anisocytosis PT INR APTT PTT Ratio VBG pH VBG pCO2 VBG pO2 VBG HCO3 VBG O2 Saturation VBG Base Excess Barometric Pressure Sodium 138 Potassium 3.8 Chloride 99 Carbon Dioxide 34 H Anion Gap 5 BUN 19 Creatinine 0.68 Est Cr Clr Drug Dosing 115.6 Est GFR ( Amer) 106.4 Est GFR (Non-Af Amer) 91.8 BUN/Creatinine Ratio 27.9 H Glucose 77 POC Glucose 118 H Calcium 8.5 Magnesium 2.0 Total Bilirubin AST ALT Alkaline Phosphatase Troponin I B-Natriuretic Peptide Total Protein Albumin Globulin Albumin/Globulin Ratio Procalcitonin TSH SARS-CoV-2, RNA, NAAT 08/23/21 08/23/21 08:01 09:11 WBC RBC Hgb Hct MCV MCH MCHC RDW Std Deviation RDW Coeff of Dionte Plt Count MPV Immature Gran % (Auto) Neut % (Auto) Lymph % (Auto) [place] % (Auto) Eos % (Auto) Baso % (Auto) Neut # (Auto) Lymph # (Auto) [place] # (Auto) Eos # (Auto) Baso # (Auto) Immature Gran # (Auto) Absolute Nucleated RBC Nucleated RBC % (auto) Polychromasia Anisocytosis PT INR APTT PTT Ratio VBG pH VBG pCO2 VBG pO2 VBG HCO3 VBG O2 Saturation VBG Base Excess Barometric Pressure Sodium Potassium Chloride Carbon Dioxide Anion Gap BUN Creatinine Est Cr Clr Drug Dosing Est GFR ( Amer) Est GFR (Non-Af Amer) BUN/Creatinine Ratio Glucose POC Glucose 77 Calcium Magnesium Total Bilirubin AST ALT Alkaline Phosphatase Troponin I Pending B-Natriuretic Peptide Total Protein Albumin Globulin Albumin/Globulin Ratio Procalcitonin TSH SARS-CoV-2, RNA, NAAT Diagnostic Findings EKG on presentation was poor in quality, demonstrating sinus rhythm at 78 bpm with left atrial enlargement, nonspecific interventricular conduction block, left bundle branch block pattern, inferior T wave abnormality suggestive of ischemia. QTC 453 ms.
[2021-08-23] MEDS: LOSARTAN POTASSIUM 50 MG TAB PO SCH (11:44)
--- NOTE | 2021-08-23 13:16 | Hospitalist Progress Note ---
Date of Service August 23, 2021 Assessment & Plan (1) Acute on chronic heart failure with preserved ejection fraction (HFpEF): (2) Acute and chronic respiratory failure with hypoxia: (3) Interstitial lung disease: (4) Hypertension: (5) Left bundle branch block: Plan: 66 yr old F who has a significant PMH of ILD on 4L of O2 with ext and 2 at HS, chronic hypoxic resp failure, Chronic HFpEF, Pulm HTN, COPD, former tobacco abuser, HTN, HLD, LBBB who presents to ED at referral of Pulm clinic 08/03 to hypoxia. Acute on chronic heart failure with preserved ejection fraction Acute on chronic Resp Failure with hypoxia Last echo 06/21 EF 55%, grade 1 diastolic dysfunction, pulmonary hypertension, elevated PASP, mild TR Echo today showed EF of 40 to 45%, septal motion consistent with conduction abnormality, flattened septum consistent with RV pressure overload, mild global hypokinesis, mildly dilated RV, mild TR, estimated PASP of 53 mmHg, dilated inferior vena cava with reduced collapsibility Appears patient might of developed acute systolic heart failure as well based on Echo today Continue IV lasix Monitor I/O Daily weights Low sodium diet Monitor electrolytes Interstitial lung disease Pro-Jimmy negative Following pulmonology outpatient and had bronchoscopy on 08/08 with negative cytology Etiology still unclear Patient was seen by PCP on 08/19/21 and prescribed pred 40mg x 16 days; then 20mg x 15 days then 10mg x 15 days Will continue prednisone 20mg daily started on admission. I do not think prolonged course is needed at this time considering worsening symptoms are likely due to combination of ILD and HF as above. Will change order to 5 days for now and await Pulm evaluation Continue albuterol prn Continue O2, chronically 2L at HS and 4L with exertion Patient also needs a sleep study outpatient HTN HLD LBBB Continue asa, statin, lisinopril, coreg Morbid obesity, BMI 47.3 Discussed lifestyle modifications DVT ppx: SQ Lovenox BID Dispo: pcu PCP: Sharon Castellanos FULL CODE Admission and Anticipated Discharge Date Admission Date: August 22, 2021 Subjective Patient seen and examined Reports SOB with mild exertion, cough at bedside reported patient has PND and cough at night which improved after she started using oxygen at bedtime Denied any chest pain Reports leg swelling which is improved Denied any fevers, chills, nausea, vomiting, abd pain or diarrhea Denied dysuria, freq, urgency Physical Exam Constitutional: + well hydrated; no acute distress Eyes: PERRL, conjunctivae normal, anicteric sclerae ENMT: external ear and nose normal, oropharynx normal Respiratory: Not in respiratory distress, bilateral crackles Cardiovascular: Rate/Rhythm: regular rate and regular rhythm S1 S2 Gastrointestinal (Abdomen): normal bowel sounds, soft, nontender, no hepatosplenomegaly Musculoskeletal: +pedal edema Neurologic: PERRL, EOMI, accommodation nl, no face palsy, no dysarthria Psychiatric: A+Ox3, euthymic affect Results & Data Results & Data ([facility]) Vital Signs (Past 12 Hours) Vital Signs Pulse Resp BP Pulse Ox 08/23/21 11:43 74 21 108/67 98 08/23/21 07:30 71 20 188/115 H 98 08/23/21 04:22 79 22 147/88 H 93 Laboratory Results Abnormal lab results 08/22/21 08/22/21 08/23/21 Range/Units 19:38 21:22 05:19 RBC 5.47 H (4.2-5.4) M/uL MCV 79.5 L (80-100) fL MCH 23.0 L (25-34) pg MCHC 29.0 L (32-36) g/dL RDW Std Deviation 55.0 H (36.4-46.3) fL RDW Coeff of Dionte 18.9 H (11.5-14.5) % Absolute Nucleated RBC 0.11 H (0-0) K/uL Carbon Dioxide (21-32) mmol/L BUN/Creatinine Ratio (10-20) POC Glucose 118 H (70-99) mg/dl Troponin I 0.12 H* (0-0.04) ng/ml 08/23/21 08/23/21 08/23/21 Range/Units 05:19 09:11 13:26 RBC (4.2-5.4) M/uL MCV (80-100) fL MCH (25-34) pg MCHC (32-36) g/dL RDW Std Deviation (36.4-46.3) fL RDW Coeff of Dionte (11.5-14.5) % Absolute Nucleated RBC (0-0) K/uL Carbon Dioxide 34 H (21-32) mmol/L BUN/Creatinine Ratio 27.9 H (10-20) POC Glucose 138 H (70-99) mg/dl Troponin I 0.22 H* (0-0.04) ng/ml
--- NOTE | 2021-08-23 16:36 | Pulmonary Consultation ---
Date of Consultation August 23, 2021 Assessment & Plan (1) Pulmonary edema: Chronicity: acute Qualified Code(s): J81.0 - Acute pulmonary edema (2) Acute and chronic respiratory failure with hypoxia: (3) History of pulmonary hypertension: (4) COPD (chronic obstructive pulmonary disease): Chest x-ray 08/22/2021 personally reviewed: Portable film, with respiratory effort, bilateral alveolar opacities appreciated, increased vascular markings, increased cardiac silhouette 2D echo 08/23/2021: 40-45%, systolic PAP 53 mmHg, flattened septum, right lilliana tricle mildly dilated, RV systolic function is normal, mild TR --Shortness of breath Multifactorial I do think patient underlying systolic CHF is playing a role right now COVID-19 PCR negative BNP 1055 Procalcitonin negative TSH within normal limit --Chronic hypoxic respiratory failure On 4 L at exertion 2 L at rest Continue to keep O2 saturation between 88-92% --Probable KOSTAS Needs outpatient polysomnography Plan: Patient has been already diuresing well Would recommend continue with diuresis I will start the patient on BiPAP / nightly and as needed shortness of breath CT chest without contrast to look at lung parenchyma O2 supplementation to keep O2 saturation between 88-92% Please note the above document was generated using voice recognition software. It may contain grammatical, syntax or spelling errors.Any formal questions or concerns about the content, text or information contained within the body of this dictation should be directly addressed to the provider for clarification. History of Present Illness Attending Physician: Lise Holt MD History of Present Illness 66 old female past medical history of ILD on 4 L oxygen with exertion 2 L nightly presented to the hospital with complaints of worsening shortness of breath Past medical history: Pulmonary hypertension, dyslipidemia, left bundle branch block, obesity Patient follows up with survey worker as an outpatient. She recently had a bronchoscopy done on 08/08/2021 Pulmonary consulted for the same At the time of examination stated that she is doing better compared to when she was at home She was given Lasix and she is urinated well Denies any significant chest pain Does complain of cough which is mostly dry occasional phlegm No hemoptysis. Denies any headache, no blurry vision, no diarrhea, no dysuria Social history: [id number] smoking history, quit in 2016. 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 Allergies Allergy/AdvReac Type Severity Reaction Status Date / Time No Known Allergies Allergy Unverified 08/22/21 15:45 Home Medications Medication Instructions Recorded Confirmed Type albuterol sulfate 90 mcg/actuation 2 puff INHALATION QID PRN 08/22/21 08/22/21 History aerosol inhaler aspirin 325 mg tablet 325 mg PO DAILY 08/22/21 08/22/21 History atorvastatin 20 mg tablet 20 mg PO DAILY 08/22/21 08/22/21 History carvedilol 3.125 mg tablet 3.125 mg PO BID 08/22/21 08/22/21 History lisinopril 2.5 mg tablet 2.5 mg PO DAILY 08/22/21 08/22/21 History multivitamin (Multiple Vitamins) 1 tab PO DAILY 08/22/21 08/22/21 History omeprazole 20 mg capsule,delayed 20 mg PO DAILY 08/22/21 08/22/21 History release prednisone 20 mg tablet 0 mg PO .DAILY UD 08/22/21 08/22/21 History Patient History Medical History Chronic heart failure with preserved ejection fraction Chronic respiratory failure with hypoxia COPD (chronic obstructive pulmonary disease) Dyslipidemia Emphysema lung Hiatal hernia History of pulmonary hypertension Hypertension Interstitial lung disease Left bundle branch block Pulmonary hypertension Tobacco use Surgical History History of bronchoscopy History of colonoscopy Family History Mother Diabetes Father Homicide Social History Smoking Status: Former smoker Smoking End Date: 2015; Hx Alcohol Use: No Hx Substance Use: No Preferred Language: Hungarian Communication Ability: Effective Teletype Clerk Required: No Beliefs That Will Affect Care: None marital status: Current Living Situation: Spouse Other Information That Helps Us Care for You: No Feels Safe at Home: Yes Safety Concerns: Feels Safe At This Time Assistive Devices: Oxygen - Continuous Review of Systems Review of Systems: All systems reviewed & are unremarkable except as noted in HPI & below Physical Exam Physical Exam: Constitutional: No acute distress HEENT: EOMI, PERRLA Respiratory system: Decreased air entry bilaterally, no rhonchi, positive crackles bilaterally, no wheeze CVS: S1-S2 positive, no murmurs or gallops Abdomen: Soft, nontender, nondistended, positive bowel sounds x4 Extremities: +2 pulses bilaterally radialis/ dorsalis pedis, no cyanosis, +1 pitting edema bilateral lower extremity Neuro: Awake alert oriented x3 Psych: Normal mood and affect G/U: No Vasquez Skin: no rashes, warm and dry Lymphatic: no cervical or axillary lymphadenopathy Results & Data Results & Data ([facility]) Vital Signs (Past 12 Hours) Vital Signs Pulse Resp BP Pulse Ox 08/23/21 11:43 74 21 108/67 98 08/23/21 07:30 71 20 188/115 H 98 Laboratory Results 08/23/21 05:19 08/23/21 05:19 PG Care Time/CCT Total # of Minutes Spent Total Time Spent with Patient: Total time spent is greater than 50% in coordination of care (as documented) at patient's floor/unit and/or counseling patient: Coding Level of Care Code 29634 Initial Inpt Care Lvl 3 Diagnoses Pulmonary edema J81.0 Chronicity: acute Acute and chronic respiratory failure with hypoxia J96.21 History of pulmonary hypertension Z86.79 COPD (chronic obstructive pulmonary disease) J44.9
--- NOTE | 2021-08-23 17:27 | CT Scan Report ---
CT SCAN OF THE CHEST WITHOUT IV CONTRAST CLINICAL HISTORY: Dyspnea. Pulmonary edema. COMPARISON STUDY: Chest x-ray dated 08/22/2021. TECHNIQUE: CT scan of the thorax was performed from the thoracic inlet to the upper abdomen. Images are reviewed in the axial, sagittal, and coronal planes. IV contrast was not administered for this ex amination as per the referring clinician. A dose lowering technique was utilized adhering to the reading [facility] of [facility]. CT DOSE: 593.76 mGy.cm FINDINGS: Thyroid: Imaged portions of the thyroid gland are normal in size and attenuation. Thoracic aorta: There is atherosclerotic calcification of the thoracic aorta, which is normal in carter carolann and demonstrates standard 3-vessel arch anatomy. Heart: The heart is mildly enlarged and without pericardial effusion. There are coronary artery calci fications. Lungs and pleural spaces: Emphysematous change is noted. Subpleural reticulation is seen throughout b oth lungs with a lower lobe predominance with associated subpleural groundglass change and septal thi ckening. No traction bronchiectasis or honeycombing is identified. There is diffuse intralobular sept al thickening suggestive of congestive failure. Mild groundglass opacities are seen throughout both l ungs. The trachea and central airways are clear Mediastinum: There are numerous enlarged mediastinal lymph nodes. These measure up to 15 mm in short axis. Sobeida: There is likely bilateral hilar adenopathy. This is not well assessed without IV contrast. Axillae: There is no axillary lymphadenopathy. Upper abdomen: A small hiatal hernia is noted. Parenchyma calcifications are seen in the pancreatic t ail suggesting chronic pancreatitis. Skeletal structures: The skeletal structures are osteopenic. No lytic or blastic bony lesions are see n. IMPRESSION: 1. Cardiomegaly with evidence of congestive failure. 2. Emphysema with findings of superimposed chronic interstitial lung disease. 3. Groundglass change throughout both lungs likely represents mild pulmonary edema. Correlate clinica lly for evidence of a superimposed infectious/inflammatory pneumonitis. 4. Trace pleural effusions, right larger than left. 5. Mediastinal and hilar adenopathy is nonspecific and likely related to chronic lung disease. 6. Additional findings as above. ACT 112: Negative or not required by law. Electronically signed by: Nikunj Menchaca M.D. 08/23/2021 5:26 PM
[2021-08-24 05:50] LABS: Hematocrit (blood only) 42.4 % (37-47); Hemoglobin 12.3 g/dL (12.0-16.0); Mean Corpuscular Hemoglobin 22.9 pg (25-34); Mean Corpuscular Volume 79.1 fL (80-100); Mean Platelet Volume 11.4 fL (7.4-10.4); Nucleated RBC # (auto) 0.06 K/uL (0-0); Nucleated RBC % (auto) 0.7 %; Platelet Count 196 K/uL (130-400); RDW Coefficient of Variation 18.9 % (11.5-14.5); RDW Standard Deviation 54.6 fL (36.4-46.3); Red Blood Count 5.36 M/uL (4.2-5.4); White Blood Count 9.68 K/uL (4.8-10.8)
[2021-08-24 06:11] LABS: BUN Creatinine Ratio 27.5 (10-20); Calcium 8.4 mg/dl (8.5-10.1); Creatinine Clr Calc Pharmacy 113.9 ml/min; Est GFR (African American) 105.9 ml/min; Est GFR (Non-African American) 91.4 ml/min; Phosphorus 3.9 mg/dl (2.5-4.9); Potassium 3.9 mmol/L (3.5-5.1)
[2021-08-24] MEDS: INSULIN ASPART PER UNIT SC SCH ×4 (10:04→20:34)
[2021-08-24] MEDS: MULTIVITAMIN TAB PO SCH (10:07)
[2021-08-24] MEDS: predniSONE 20 MG TAB PO SCH (10:07)
[2021-08-24] MEDS: PANTOprazole 40 MG TAB PO SCH (10:07)
[2021-08-24] MEDS: LOSARTAN POTASSIUM 50 MG TAB PO SCH (10:08)
[2021-08-24] MEDS: METOPROLOL SUCC 25MG EXT REL TAB PO SCH (10:08)
[2021-08-24] MEDS: FUROSEMIDE 40 MG/4 ML VIAL IV SCH (10:08)
[2021-08-24] MEDS: ATORVASTATIN 20 MG TAB PO SCH (10:11)
[2021-08-24] MEDS: ENOXAPARIN INJ 40 MG/0.4 ML SYR SQ SCH ×2 (10:11→21:21)
[2021-08-24] MEDS: ASPIRIN 325 MG ECTAB PO SCH (10:11)
--- NOTE | 2021-08-24 11:04 | Cardiology Progress Note ---
Date of Service August 24, 2021 Assessment & Plan (1) Interstitial lung disease: (2) Chronic respiratory failure with hypoxia: (3) Tobacco use: (4) Chronic heart failure with preserved ejection fraction: (5) History of pulmonary hypertension: (6) Left bundle branch block: (7) Hypoxia: Plan: Complex 66 year old female referred for hospitalization due to concern for volume overload. Resting echocardiography on August 23, 2021 revealed mild reduction in left ventricular systolic function with an ejection fraction of 40 to 45%. Dilated right ventricle with septal flattening consistent with RV pressure overload, pulmonary hypertension with estimated pulmonary artery systolic pressure of 53 mmHg, noted. Patient remains asymptomatic in regards to overt symptoms suggestive of an acute coronary syndrome (minimally elevated troponin this hospitalization, remote catheterization without obstructive coronary artery disease). Main issue appears to be underlying significant pulmonary disease with mild acute decompensated mixed systolic and diastolic c ongestive heart failure. Continue cautious IV diuretics as presently prescribed, likely switching to oral diuretics in the morning of August 25, 2021. Carvedilol switched to metoprolol succinate, lisinopril switched to losartan this admission. Agree with recommendation for the utilization of BiPAP nightly and as needed during the day. Admission and Anticipated Discharge Date Admission Date: August 22, 2021 Supervising Physician Co-Signing Physician Notes Patient seen and examined at the bedside. Respiratory status improved with intravenous diuretic therapy. Fluid balance negative an additional 2.8 L over the past 24 hours. Renal function remains stable. Notes nonproductive cough overnight. Denies orthopnea or PND. Lower extremity edema unchanged. Telemetry reveals sinus rhythm with heart rate averaging 90-95 bpm. PE: VSS. Gen: NAD. AAOx3. Heart: Regular rhythm, normal S1-S2. No murmur. Lungs: Diffuse crackles in all lung price bilaterally. Mild end expiratory wheeze. Extremities: 1+ bilateral ankle and pretibial edema. Neurologic: No focal deficit. A/P: Agree with above PA-C history, physical exam, assessment and plan. Echocardiogram revealing mild LV systolic dysfunction and moderate pulmonary hypertension. Continue cautious diuresis with IV furosemide. Serum bicarbonate continues to trend upward. ABG without significant CO2 retention on admission. Monitor daily weight, GFR, and electrolytes. Agree with transition of carvedilol to metoprolol due to underlying interstitial lung disease with expiratory wheeze. BiPAP nightly. Subjective Patient seen and examined. Chart, medications, and telemetry reviewed. Feels okay. Dyspnea may be a little better. Fluid may be a little better. She notes not coughing last night, sleeping well. She did not utilize CPAP/BiPAP last night. No chest pain. No palpitations. No PND. No dizziness or near syncope. No subjective fevers or chills. I's/O's -5875 mL overall. Weight is reportedly unchanged at 133 kg since admission. Continuous telemetry monitoring revealed sinus/sinus tachycardia ranging from the 70s to 130s over the last 24 hours August 23, 2021 TTE Interpretation Summary ([facility], Dr. Fisher): Technically limited. No comparison study available. Ejection fraction 40 to 45%. Septal motion consistent with conduction abnormality. Flattened septum, consistent with RV pressure overload. Otherwise, mild global hypokinesis. Mildly dilated right ventricle. Normal RV systolic function by TAPSE. Mild aortic valve sclerosis, without significant stenosis. Mild tricuspid regurgitation. Estimated pulmonary artery systolic pressure 53 mmHg. Dilated IVC with reduced collapsibility with sniff indicating an elevated right atrial pressure of 15 mmHg. Review of Systems Review of Systems: Complete review of systems is otherwise as stated above, negative, or noncontributory. Physical Exam Physical Exam: General: A&Ox3. NAD. Elevated BMI. HENT: Normocephalic. Atraumatic. Eyes: PER. Conjunctiva pink, sclera clear. Neck: No carotid bruits. I could not appreciate JVD Heart: Regular at 88 bpm. No murmur. No rub. Lungs: Diffuse rhonchi and wheeze. Decreased. Diminished. Dry crackles. Abdomen: +BS. Somewhat soft. Nontender. No masses or organomegaly. Extremities: Chronic varicosities. Minimal edema. No clubbing. No cyanosis. Limited neurological examination is without focal deficits. Pulses: radial=2/4, posterior tibial=1/4. Results & Data ([facility]) Vital Signs (Past 12 Hours) Vital Signs Temp Pulse Pulse Resp BP BP Pulse Ox 08/24/21 07:55 36.6 C 70 18 118/73 93 08/24/21 03:42 36.4 C L 84 18 103/58 L 93 08/23/21 23:40 36.7 C 90 18 118/74 94 08/23/21 23:08 79 Laboratory Results Laboratory Results - last 24 hr 08/23/21 08/23/21 08/24/21 13:26 20:15 05:21 WBC 9.68 RBC 5.36 Hgb 12.3 Hct 42.4 MCV 79.1 L MCH 22.9 L MCHC 29.0 L RDW Std Deviation 54.6 H RDW Coeff of Dionte 18.9 H Plt Count 196 MPV 11.4 H Absolute Nucleated RBC 0.06 H Nucleated RBC % (auto) 0.7 Sodium Potassium Chloride Carbon Dioxide Anion Gap BUN Creatinine Est Cr Clr Drug Dosing Est GFR ( Amer) Est GFR (Non-Af Amer) BUN/Creatinine Ratio Glucose POC Glucose 138 H 145 H Calcium Phosphorus Magnesium 08/24/21 08/24/21 05:21 07:37 WBC RBC Hgb Hct MCV MCH MCHC RDW Std Deviation RDW Coeff of Dionte Plt Count MPV Absolute Nucleated RBC Nucleated RBC % (auto) Sodium 140 Potassium 3.9 Chloride 98 Carbon Dioxide 38 H Anion Gap 4 BUN 19 Creatinine 0.69 Est Cr Clr Drug Dosing 113.9 Est GFR ( Amer) 105.9 Est GFR (Non-Af Amer) 91.4 BUN/Creatinine Ratio 27.5 H Glucose 73 POC Glucose 88 Calcium 8.4 L Phosphorus 3.9 Magnesium 2.0
[2021-08-24] MEDS: ALBUT/IPRATROP 3MG/0.5MG NEB 3 ML VIAL NEB SCH ×2 (14:47→19:24)
--- NOTE | 2021-08-24 16:36 | Pulmonology Progress Note ---
Date of Service August 24, 2021 Assessment & Plan (1) Pulmonary edema: Chronicity: acute Qualified Code(s): J81.0 - Acute pulmonary edema (2) Acute and chronic respiratory failure with hypoxia: (3) History of pulmonary hypertension: (4) COPD (chronic obstructive pulmonary disease): Plan: CT chest 08/23/2021 personally reviewed: Paraseptal emphysema appreciated bilaterally Mild bilateral pleural effusion Ground-glass opacities and interlobular thickening especially upper lobes more on the left side Mild mediastinal lymphadenopathy 4R Chest x-ray 08/22/2021 personally reviewed: Portable film, with respiratory ef fort, bilateral alveolar opacities appreciated, increased vascular markings, increased cardiac silhouette 2D echo 08/23/2021: 40-45%, systolic PAP 53 mmHg, flattened septum, right ventricle mildly dilated, RV systolic function is normal, mild TR --Shortness of breath Multifactorial I do think patient underlying systolic CHF is playing a role right now COVID-19 PCR negative BNP 1055 Procalcitonin negative TSH within normal limit --Pulmonary hypertension Likely combination of type II and type III Continue with diuresis as above --COPD Not on any inhalers at home I will start the patient on daily inhalers --Chronic hypoxic respiratory failure On 4 L at exertion 2 L at rest Continue to keep O2 saturation between 88-92% --Probable KOSTAS Needs outpatient polysomnography BiPAP nightly and as needed shortness of breath Plan: Start the patient on Anoro to be used on a daily basis Continue diuresis Please note the above document was generated using voice recognition software. It may contain grammatical, syntax or spelling errors.Any formal questions or concerns about the content, text or information contained within the body of this dictation should be directly addressed to the provider for clarification. Admission and Anticipated Discharge Date Admission Date: August 22, 2021 Subjective Patient seen and examined at bedside. No acute distress, noted with symptoms overnight Patient said that she is feeling better after coming to the hospital She still complaining of some cough which is not that productive Denies any hemoptysis No nausea or vomiting Fair appetite Review of Systems Review of Systems: All systems reviewed & are unremarkable except as noted in Subjective Physical Exam Physical Exam: Constitutional: No acute distress HEENT: EOMI, PERRLA Respiratory system: Decreased air entry bilaterally, no rhonchi, positive crackles bilaterally, no wheeze CVS: S1-S2 positive, no murmurs or gallops Abdomen: Soft, nontender, nondistended, positive bowel sounds x4 Extremities: +2 pulses bilaterally radialis/ dorsalis pedis, no cyanosis, +1 pitting edema bilateral lower extremity Neuro: Awake alert oriented x3 Psych: Normal mood and affect G/U: No Vasquez Skin: no rashes, warm and dry Lymphatic: no cervical or axillary lymphadenopathy Results & Data Results & Data ([facility]) Vital Signs (Past 12 Hours) Vital Signs Temp Pulse Pulse Resp BP BP Pulse Ox 08/24/21 16:05 36.7 C 82 20 129/71 93 08/24/21 14:47 91 H 19 94 08/24/21 11:03 36.8 C 89 19 104/65 93 08/24/21 07:55 36.6 C 70 18 118/73 93 08/24/21 07:30 80 Laboratory Results 08/24/21 05:21 08/24/21 05:21 PG Care Time/CCT Total # of Minutes Spent Total Time Spent with Patient: Total time spent is greater than 50% in coordination of care (as documented) at patient's floor/unit and/or counseling patient: Coding [place] [address] Subseq Hosp Care Lvl 2 Patient Type Established Diagnoses Pulmonary edema J81.0 Chronicity: acute Acute and chronic respiratory failure with hypoxia J96.21 History of pulmonary hypertension Z86.79 COPD (chronic obstructive pulmonary disease) J44.9
[2021-08-24] MEDS: UMECLIDINIUM/VILANTEROL 62.5/25MCG 7 PUFFS/INHALER INH SCH (17:29)
--- NOTE | 2021-08-24 18:24 | Hospitalist Progress Note ---
Date of Service August 24, 2021 Assessment & Plan (1) Acute on chronic heart failure with preserved ejection fraction (HFpEF): (2) Acute and chronic respiratory failure with hypoxia: (3) Interstitial lung disease: (4) Hypertension: (5) Left bundle branch block: Plan: Patient is a 66 yr female with H/O ILD on 4L of O2 with ext and 2 at HS, chronic hypoxic resp failure, Chronic HFpEF, Pulm HTN, COPD, former tobacco abuser, HTN, HLD, LBBB who presents to ED at referral of Pulm clinic 08/03 to hypoxia. Acute on chronic systolic and diastolic heart failure Acute on chronic Resp Failure with hypoxia Pulmonary hypertension -Last echo 06/21 EF 55%, grade 1 diastolic dysfunction, pulmonary hypertension, elevated PASP, mild TR -Updated Echo showed EF of 40 to 45%, septal motion consistent with conduction abnormality, flattened septum consistent with RV pressure overload, mild global hypokinesis, mildly dilated RV, mild TR, estimated PASP of 53 mmHg, dilated inferior vena cava with reduced collapsibility -CT Chest:Cardiomegaly with evidence of congestive failure. Emphysema with findings of superimposed chronic interstitial lung disease. Groundglass change throughout both lungs likely represents mild pulmonary edema. Correlate clinically for evidence of a superimposed infectious/inflammatory pneumonitis. Trace pleural effusions, right larger than left. Mediastinal and hilar adenopathy is nonspecific and likely related to chronic lung disease. Continue IV Lasix Monitor I's and O's, daily weight Appreciate cardiology input Carvedilol switched to metoprolol Lisinopril switched to losartan Plan to use BiPAP nightly and as needed Interstitial lung disease Pulmonary hypertension COPD Procalcitonin negative --Following pulmonology outpatient and had bronchoscopy on 08/08 with negative cytology --Patient was seen by PCP on 08/19/21 and prescribed pred 40mg x 16 days; then 20mg x 15 days then 10mg x 15 days --Patient is started on Anoro Needs polysomnography as outpatient Continue BiPAP nightly and as needed Continue supplemental oxygen as needed Taper down prednisone as able HTN HLD LBBB Continue asa, statin, SUNNY, beta-melissa Morbid obesity BMI 47.3 DVT px: SQ Lovenox CODE STATUS Full code Admission and Anticipated Discharge Date Admission Date: August 22, 2021 Subjective Patient is seen and examined at bedside States the cough is slightly better Leg edema slowly improving Shortness of breath slowly improving as well Slept better overnight Denies any chest pain, dizziness, nausea, abdominal pain Offers no other complaints Review of Systems Review of Systems: All systems reviewed & are unremarkable except as noted in Subjective Physical Exam Physical Exam: Physical Exam: Vitals signs as noted above General Appearance:Morbidly Obese, no apparent distress Head: normocephalic, Atraumatic Eyes: normal inspection, EOMI Neck: supple, Trachea midline Respiratory/Chest: Coarse breath sounds, No accessory muscle use Cardiovascular: S1, S2, No murmur Abdomen/GI:Soft, Non tender, Bowel sounds present Extremities/Musculoskeletal:normal inspection, B/L LE edema Neurologic/Psych:AAOX3, grossly no focal neurological deficits Skin: normal color, warm Results & Data Results & Data ([facility]) Vital Signs (Past 12 Hours) Vital Signs Temp Pulse Pulse Resp BP BP Pulse Ox 08/24/21 16:05 36.7 C 82 20 129/71 93 08/24/21 14:47 91 H 19 94 08/24/21 11:03 36.8 C 89 19 104/65 93 08/24/21 07:55 36.6 C 70 18 118/73 93 08/24/21 07:30 80 Laboratory Results Short CBC 08/24/21 Range/Units 05:21 WBC 9.68 (4.8-10.8) K/uL Hgb 12.3 (12.0-16.0) g/dL Hct 42.4 (37-47) % Plt Count 196 (130-400) K/uL BMP 08/24/21 05:21 Sodium 140 Potassium 3.9 Chloride 98 Carbon Dioxide 38 H BUN 19 Creatinine 0.69 Glucose 73 Calcium 8.4 L
[2021-08-25 06:14] LABS: BUN Creatinine Ratio 26.8 (10-20); Calcium 8.4 mg/dl (8.5-10.1); Creatinine Clr Calc Pharmacy 141.1 ml/min; Est GFR (African American) 113.4 ml/min; Est GFR (Non-African American) 97.8 ml/min; Potassium 3.6 mmol/L (3.5-5.1)
[2021-08-25] MEDS: ALBUT/IPRATROP 3MG/0.5MG NEB 3 ML VIAL NEB SCH ×4 (07:11→18:59)
[2021-08-25] MEDS: INSULIN ASPART PER UNIT SC SCH ×4 (08:17→20:52)
[2021-08-25] MEDS: ATORVASTATIN 20 MG TAB PO SCH (09:20)
[2021-08-25] MEDS: PANTOprazole 40 MG TAB PO SCH (09:20)
[2021-08-25] MEDS: FUROSEMIDE 40 MG/4 ML VIAL IV SCH (09:20)
[2021-08-25] MEDS: POTASSIUM CHLORIDE CRTAB 20 MEQ TABCR PO SCH (09:20)
[2021-08-25] MEDS: predniSONE 20 MG TAB PO SCH (09:21)
[2021-08-25] MEDS: ASPIRIN 325 MG ECTAB PO SCH (09:21)
[2021-08-25] MEDS: MULTIVITAMIN TAB PO SCH (09:21)
[2021-08-25] MEDS: LOSARTAN POTASSIUM 50 MG TAB PO SCH (09:21)
[2021-08-25] MEDS: METOPROLOL SUCC 25MG EXT REL TAB PO SCH ×2 (09:21→14:33)
[2021-08-25] MEDS: ENOXAPARIN INJ 40 MG/0.4 ML SYR SQ SCH ×2 (09:22→21:00)
[2021-08-25] MEDS: UMECLIDINIUM/VILANTEROL 62.5/25MCG 7 PUFFS/INHALER INH SCH (09:22)
--- NOTE | 2021-08-25 11:03 | Cardiology Progress Note ---
Date of Service August 25, 2021 Assessment & Plan (1) Interstitial lung disease: (2) Chronic respiratory failure with hypoxia: (3) Tobacco use: (4) Chronic heart failure with preserved ejection fraction: (5) History of pulmonary hypertension: (6) Left bundle branch block: (7) Hypoxia: Plan: 66 year old female admitted with volume overload, acute decompensated right heart failure. Echocardiography on August 23, 2021 revealed an EF of 40 to 45%, dilated RV with septal flattening consistent with RV pressure overload, pulmonary hypertension (53 mmHg). Minimally elevated troponin noted, without symptoms suggestive of an acute coronary syndrome. Remote catheterization without obstructive coronary artery disease. Patient has responded well to IV diuretic therapy this admission. Supplemental potassium ordered noting borderline reading this morning. Patient will require oral diuretic therapy on discharge. Consider addition of spironolactone especially if hypokalemia observed. Carvedilol switched to metoprolol succinate this admission. Lisinopril switched to losartan this admission. Recommend hospital discharge follow-up in 2-3 weeks. Please call with any questions or concerns. Admission and Anticipated Discharge Date Admission Date: August 22, 2021 Supervising Physician Co-Signing Physician Notes Patient seen and examined at the bedside. Respiratory status improved with intravenous diuretic therapy. Fluid balance negative an additional 2.1 L over the past 24 hours. Renal function remains stable. Notes nonproductive cough overnight. Denies orthopnea or PND. Lower extremity edema unchanged. Telemetry reveals sinus rhythm with heart rate averaging 90-95 bpm. Isolated 9 beat gauri of nonsustained ventricular tachycardia recorded. Patient states "I feel great". Requesting discharge when possible. PE: VSS. Gen: NAD. AAOx3. Heart: Regular rhythm, normal S1-S2. No murmur. Lungs: Diffuse crackles in all lung price bilaterally. Mild end expiratory wheeze. Extremities: 1+ bilateral ankle and pretibial edema. Neurologic: No focal deficit. A/P: Agree with above PA-C history, physical exam, assessment and plan. Echocardiogram revealing mild LV systolic dysfunction and moderate pulmonary hypertension. Respiratory status markedly improved. Continue IV diuresis today. Likely transition to oral diuretic therapy in the next 24-48 hours. Isolated 9 beat gauri of nonsustained ventricular tachycardia. Maintain potassium greater than 4.0. She will receive an additional 40 mg of potassium chloride now. Monitor daily weight, GFR, and electrolytes. BiPAP nightly. Subjective Patient seen and examined. Chart, medications, and telemetry reviewed. Feels much better overall. Dyspnea has improved. No chest pain. No palpitations. No dizziness or near syncope. I/O's negative 10,475 mL's overall Telemetry: Sinus in the 70's. August 23, 2021 TTE Interpretation Summary ([facility], Dr. Fisher): Technically limited. No comparison study available. Ejection fraction 40 to 45%. Septal motion consistent with conduction abnormality. Flattened septum, consistent with RV pressure overload. Otherwise, mild global hypokinesis. Mildly dilated right ventricle. Normal RV systolic function by TAPSE. Mild aortic valve sclerosis, without significant stenosis. Mild tricuspid regurgitation. Estimated pulmonary artery systolic pressure 53 mmHg. Dilated IVC with reduced collapsibility with sniff indicating an elevated right atrial pressure of 15 mmHg. Review of Systems Review of Systems: Complete review of systems is otherwise as stated above, negative, or noncontributory. Physical Exam Physical Exam: General: A&Ox3. NAD. Elevated BMI. HENT: Normocephalic. Atraumatic. Eyes: PER. Conjunctiva pink, sclera clear. Neck: No carotid bruits. I could not appreciate JVD Heart: Regular at 88 bpm. No murmur. No rub. Lungs: Decreased. Diminished. Dry crackles. No rhonchi. No wheeze. Abdomen: +BS. Somewhat soft. Nontender. No masses or organomegaly. Extremities: Chronic varicosities. Minimal edema. No clubbing. No cyanosis. Limited neurological examination is without focal deficits. Pulses: radial=2/4, posterior tibial=1/4. Results & Data ([facility]) Vital Signs (Past 12 Hours) Vital Signs Temp Pulse Pulse Pulse Resp BP BP 08/25/21 10:15 88 08/25/21 10:12 103 H 20 08/25/21 07:19 36.4 C L 78 17 136/83 08/25/21 07:11 86 20 08/25/21 02:57 36.7 C 75 17 127/69 Pulse Ox 08/25/21 10:15 08/25/21 10:12 86 L 08/25/21 07:19 93 08/25/21 07:11 90 08/25/21 02:57 98 Laboratory Results Laboratory Results - last 24 hr 08/24/21 08/24/21 08/24/21 11:45 16:48 20:21 Sodium Potassium Chloride Carbon Dioxide Anion Gap BUN Creatinine Est Cr Clr Drug Dosing Est GFR ( Amer) Est GFR (Non-Af Amer) BUN/Creatinine Ratio Glucose POC Glucose 130 H 157 H 139 H Calcium 08/25/21 08/25/21 05:31 07:00 Sodium 138 Potassium 3.6 Chloride 98 Carbon Dioxide 36 H Anion Gap 4 BUN 15 Creatinine 0.56 L Est Cr Clr Drug Dosing 141.1 Est GFR ( Amer) 113.4 Est GFR (Non-Af Amer) 97.8 BUN/Creatinine Ratio 26.8 H Glucose 86 POC Glucose 97 Calcium 8.4 L
--- NOTE | 2021-08-25 13:24 | Pulmonology Progress Note ---
Date of Service August 25, 2021 Assessment & Plan (1) Pulmonary edema: Chronicity: acute Qualified Code(s): J81.0 - Acute pulmonary edema (2) Acute and chronic respiratory failure with hypoxia: (3) History of pulmonary hypertension: (4) COPD (chronic obstructive pulmonary disease): Plan: CT chest 08/23/2021 personally reviewed: Paraseptal emphysema appreciated bilaterally Mild bilateral pleural effusion Ground-glass opacities and interlobular thickening especially upper lobes more on the left side Mild mediastinal lymphadenopathy 4R Chest x-ray 08/22/2021 personally reviewed: Portable film, with respiratory ef fort, bilateral alveolar opacities appreciated, increased vascular markings, increased cardiac silhouette 2D echo 08/23/2021: 40-45%, systolic PAP 53 mmHg, flattened septum, right ventricle mildly dilated, RV systolic function is normal, mild TR --Shortness of breath Multifactorial I do think patient underlying systolic CHF is playing a role right now COVID-19 PCR negative BNP 1055 Procalcitonin negative TSH within normal limit --Pulmonary hypertension Likely combination of type II and type III Continue with diuresis as above --COPD Not on any inhalers at home I will start the patient on daily inhalers --Chronic hypoxic respiratory failure On 4 L at exertion 2 L at rest Continue to keep O2 saturation between 88-92% --Probable KOSTAS Needs outpatient polysomnography BiPAP nightly and as needed shortness of breath Plan: On discharge get the patient overall to be used on a daily basis Outpatient polysomnography No further recommendation from pulmonary perspective. We will sign off, call directly with any questions Please note the above document was generated using voice recognition software. It may contain grammatical, syntax or spelling errors.Any formal questions or concerns about the content, text or information contained within the body of this dictation should be directly addressed to the provider for clarification. Admission and Anticipated Discharge Date Admission Date: August 22, 2021 Subjective Patient seen and examined at bedside. No acute distress, noted with symptoms overnight She states she is feeling much better after diuresing well Shortness of breath significantly improved Denies any chest pain, no dizziness Urinating well Good appetite Review of Systems Review of Systems: All systems reviewed & are unremarkable except as noted in Subjective Physical Exam Physical Exam: Constitutional: No acute distress HEENT: EOMI, PERRLA Respiratory system: Decreased air entry bilaterally, no rhonchi, positive crackles bilaterally, no wheeze CVS: S1-S2 positive, no murmurs or gallops Abdomen: Soft, nontender, nondistended, positive bowel sounds x4 Extremities: +2 pulses bilaterally radialis/ dorsalis pedis, no cyanosis, +1 pitting edema bilateral lower extremity Neuro: Awake alert oriented x3 Psych: Normal mood and affect G/U: No Vasquez Skin: no rashes, warm and dry Lymphatic: no cervical or axillary lymphadenopathy Results & Data Results & Data ([facility]) Vital Signs (Past 12 Hours) Vital Signs Temp Pulse Pulse Pulse Resp BP BP 08/25/21 11:01 36.4 C L 90 22 106/62 08/25/21 10:15 88 08/25/21 10:12 103 H 20 08/25/21 07:19 36.4 C L 78 17 136/83 08/25/21 07:11 86 20 08/25/21 02:57 36.7 C 75 17 127/69 Pulse Ox 08/25/21 11:01 93 08/25/21 10:15 08/25/21 10:12 86 L 08/25/21 07:19 93 08/25/21 07:11 90 08/25/21 02:57 98 Laboratory Results 08/24/21 05:21 08/25/21 05:31 PG Care Time/CCT Total # of Minutes Spent Total Time Spent with Patient: Total time spent is greater than 50% in coordination of care (as documented) at patient's floor/unit and/or counseling patient: Coding [place] [address] Subseq Hosp Care Lvl 2 Patient Type Established Diagnoses Pulmonary edema J81.0 Chronicity: acute Acute and chronic respiratory failure with hypoxia J96.21 History of pulmonary hypertension Z86.79 COPD (chronic obstructive pulmonary disease) J44.9
[2021-08-25] MEDS ORDERED: POTASSIUM CHLORIDE CRTAB 20 MEQ TABCR PO STA (14:46)
--- NOTE | 2021-08-25 17:26 | Hospitalist Progress Note ---
Date of Service August 25, 2021 Assessment & Plan (1) Acute on chronic heart failure with preserved ejection fraction (HFpEF): (2) Acute and chronic respiratory failure with hypoxia: (3) Interstitial lung disease: (4) Hypertension: (5) Left bundle branch block: Plan: Patient is a 66 yr female with H/O ILD on 4L of O2 with ext and 2 at HS, chronic hypoxic resp failure, Chronic HFpEF, Pulm HTN, COPD, former tobacco abuser, HTN, HLD, LBBB who presents to ED at referral of Pulm clinic 08/03 to hypoxia. Acute on chronic systolic and diastolic heart failure Acute on chronic Resp Failure with hypoxia Pulmonary hypertension -Last echo 06/21 EF 55%, grade 1 diastolic dysfunction, pulmonary hypertension, elevated PASP, mild TR -Updated Echo showed EF of 40 to 45%, septal motion consistent with conduction abnormality, flattened septum consistent with RV pressure overload, mild global hypokinesis, mildly dilated RV, mild TR, estimated PASP of 53 mmHg, dilated inferior vena cava with reduced collapsibility -CT Chest:Cardiomegaly with evidence of congestive failure. Emphysema with findings of superimposed chronic interstitial lung disease. Groundglass change throughout both lungs likely represents mild pulmonary edema. Correlate clinically for evidence of a superimposed infectious/inflammatory pneumonitis. Trace pleural effusions, right larger than left. Mediastinal and hilar adenopathy is nonspecific and likely related to chronic lung disease. Continue IV Lasix Monitor I's and O's, daily weight Appreciate cardiology input Carvedilol switched to metoprolol Lisinopril switched to losartan Continue current medications NSVT Metoprolol dose increased to 37.5 mg daily Replete electrolytes as needed Monitor Interstitial lung disease Pulmonary hypertension COPD Procalcitonin negative --Following pulmonology outpatient and had bronchoscopy on 08/08 with negative cytology --Patient was seen by PCP on 08/19/21 and prescribed pred 40mg x 16 days; then 20mg x 15 days then 10mg x 15 days --Patient is started on Anoro Needs polysomnography as outpatient Continue BiPAP nightly and as needed Continue supplemental oxygen as needed Taper down prednisone as able Nocturnal oximetry, 2 step to be done prior to discharge Needs outpatient polysomnography HTN HLD LBBB Continue asa, statin, SUNNY, beta-melissa Morbid obesity BMI 47.3 DVT px: SQ Lovenox CODE STATUS Full code Admission and Anticipated Discharge Date Admission Date: August 22, 2021 Subjective Patient seen and examined at bedside. States feeling much better today Had 9 beats of NSVT on monitor, asymptomatic Discussed with cardiology today Denies any chest pain, shortness of breath, dizziness, nausea, abdominal pain Review of Systems Review of Systems: All systems reviewed & are unremarkable except as noted in Subjective Physical Exam Physical Exam: Physical Exam: Vitals signs as noted above General Appearance:Morbidly Obese, no apparent distress Head: normocephalic, Atraumatic Eyes: normal inspection, EOMI Neck: supple, Trachea midline Respiratory/Chest: Coarse breath sounds, No accessory muscle use Cardiovascular: S1, S2, No murmur Abdomen/GI:Soft, Non tender, Bowel sounds present Extremities/Musculoskeletal:normal inspection, B/L LE edema Neurologic/Psych:AAOX3, grossly no focal neurological deficits Skin: normal color, warm Results & Data Results & Data ([facility]) Vital Signs (Past 12 Hours) Vital Signs Temp Pulse Pulse Resp BP BP Pulse Ox 08/25/21 15:46 36.6 C 92 H 19 115/72 91 08/25/21 14:49 88 08/25/21 14:19 83 18 97 08/25/21 11:01 36.4 C L 90 22 106/62 93 08/25/21 10:15 88 08/25/21 10:12 103 H 20 86 L 08/25/21 07:19 36.4 C L 78 17 136/83 93 08/25/21 07:11 86 20 90 Laboratory Results [facility] 08/25/21 05:31 Sodium 138 Potassium 3.6 Chloride 98 Carbon Dioxide 36 H BUN 15 Creatinine 0.56 L Glucose 86 Calcium 8.4 L
[2021-08-26 06:43] LABS: Hematocrit (blood only) 44.8 % (37-47); Hemoglobin 12.9 g/dL (12.0-16.0); Mean Corpuscular Hemoglobin 22.7 pg (25-34); Mean Corpuscular Hgb Conc 28.8 g/dL (32-36); Mean Corpuscular Volume 78.9 fL (80-100); Platelet Count 197 K/uL (130-400); RDW Coefficient of Variation 18.9 % (11.5-14.5); RDW Standard Deviation 54.2 fL (36.4-46.3); Red Blood Count 5.68 M/uL (4.2-5.4); White Blood Count 8.27 K/uL (4.8-10.8)
[2021-08-26 06:52] LABS: BUN Creatinine Ratio 29.1 (10-20); Calcium 8.8 mg/dl (8.5-10.1); Creatinine Clr Calc Pharmacy 135.6 ml/min; Est GFR (African American) 114.1 ml/min; Est GFR (Non-African American) 98.4 ml/min; Magnesium 2.2 mg/dl (1.7-2.4); Potassium 4.2 mmol/L (3.5-5.1)
[2021-08-26] MEDS: ALBUT/IPRATROP 3MG/0.5MG NEB 3 ML VIAL NEB SCH ×2 (07:02→10:26)
[2021-08-26] MEDS: INSULIN ASPART PER UNIT SC SCH ×2 (07:51→11:36)
[2021-08-26] MEDS: MULTIVITAMIN TAB PO SCH (08:22)
[2021-08-26] MEDS: ATORVASTATIN 20 MG TAB PO SCH (08:23)
[2021-08-26] MEDS: ASPIRIN 325 MG ECTAB PO SCH (08:23)
[2021-08-26] MEDS: PANTOprazole 40 MG TAB PO SCH (08:23)
[2021-08-26] MEDS: predniSONE 20 MG TAB PO SCH (08:23)
[2021-08-26] MEDS: METOPROLOL SUCC 25MG EXT REL TAB PO SCH ×2 (08:23→08:24)
[2021-08-26] MEDS: POTASSIUM CHLORIDE CRTAB 20 MEQ TABCR PO SCH (08:24)
[2021-08-26] MEDS: LOSARTAN POTASSIUM 50 MG TAB PO SCH (08:24)
[2021-08-26] MEDS: ENOXAPARIN INJ 40 MG/0.4 ML SYR SQ SCH (08:25)
[2021-08-26] MEDS: UMECLIDINIUM/VILANTEROL 62.5/25MCG 7 PUFFS/INHALER INH SCH (08:25)
[2021-08-26] MEDS: FUROSEMIDE 40 MG/4 ML VIAL IV SCH (08:27)
--- NOTE | 2021-08-26 10:34 | Cardiology Progress Note ---
Date of Service August 26, 2021 Assessment & Plan (1) Interstitial lung disease: (2) Chronic respiratory failure with hypoxia: (3) Tobacco use: (4) Chronic heart failure with preserved ejection fraction: (5) History of pulmonary hypertension: (6) Left bundle branch block: (7) Hypoxia: Plan: 66 year old female admitted with volume overload, acute decompensated right heart failure. Echocardiography on August 23, 2021 revealed an EF of 40 to 45%, dilated RV with septal flattening consistent with RV pressure overload, pulmonary hypertension (53 mmHg). Minimally elevated troponin noted, without symptoms suggestive of an acute coronary syndrome. Remote catheterization without obstructive coronary artery disease. Patient has responded well to IV diuretic therapy this admission. Carvedilol switched to metoprolol succinate this admission with dose titrated to 50 mg/day today. Lisinopril switched to losartan this admission. Discontinue IV furosemide and oral potassium. Start oral furosemide and low dose spironolactone. Reassess PA and lateral chest x-ray today. Recommend outpatient cardiology hospital discharge follow-up in 2-3 weeks. Please call with any questions or concerns. Admission and Anticipated Discharge Date Admission Date: August 22, 2021 Supervising Physician Co-Signing Physician Notes Patient seen and examined at the bedside. Respiratory status improved with intravenous diuretic therapy. Fluid balance negative an additional 4.6 L over the past 24 hours. Renal function remains stable. Notes nonproductive cough. Denies orthopnea or PND. Lower extremity edema unchanged. Telemetry reveals sinus rhythm with heart rate averaging 90-95 bpm. Isolated 9 beat gauri of n onsustained ventricular tachycardia recorded. Patient states "I feel great". Requesting discharge when possible. PE: VSS. Gen: NAD. AAOx3. Heart: Regular rhythm, normal S1-S2. No murmur. Lungs: Diffuse crackles in all lung price bilaterally. Mild end expiratory wheeze. Extremities: Trace to mild bilateral ankle and pretibial edema. Neurologic: No focal deficit. A/P: Agree with above PA-C history, physical exam, assessment and plan. Echocardiogram revealing mild LV systolic dysfunction and moderate pulmonary hypertension. Respiratory status markedly improved. Transition to oral diuretic therapy. Monitor daily weight, GFR, and electrolytes while hospitalized. BiPAP nightly. Cardiology will sign off. Recommend outpatient follow-up in 2-3 weeks. Please call with questions. Subjective Patient seen and examined. Chart, medications, and telemetry reviewed. No complaints. Denies chest pain, palpitations, worsening dyspnea, or positional lightheadedness/dizziness. I/O's negative 13,975 mL's overall Weight 133 kg to 121.7 kg. Telemetry: Sinus/sinus tachycardia ranging from 70 bpm to 120 bpm. August 23, 2021 TTE Interpretation Summary ([facility], Dr. Fisher): Technically limited. No comparison study available. Ejection fraction 40 to 45%. Septal motion consistent with conduction abnormality. Flattened septum, consistent with RV pressure overload. Otherwise, mild global hypokinesis. Mildly dilated right ventricle. Normal RV systolic function by TAPSE. Mild aortic valve sclerosis, without significant stenosis. Mild tricuspid regurgitation. Estimated pulmonary artery systolic pressure 53 mmHg. Dilated IVC with reduced collapsibility with sniff indicating an elevated right atrial pressure of 15 mmHg. Review of Systems Review of Systems: Complete review of systems is otherwise as stated above, negative, or noncontributory. Physical Exam Physical Exam: General: A&Ox3. NAD. Elevated BMI. HENT: Normocephalic. Atraumatic. Eyes: PER. Conjunctiva pink, sclera clear. Neck: No carotid bruits. I could not appreciate JVD Heart: Regular at 90 bpm. No murmur. No rub. Lungs: Decreased. Diminished. Dry crackles. No rhonchi. No wheeze. Abdomen: +BS. Somewhat soft. Nontender. No masses or organomegaly. Extremities: Chronic varicosities. Minimal edema. No clubbing. No cyanosis. Limited neurological examination is without focal deficits. Pulses: radial=2/4, posterior tibial=1/4. Results & Data ([facility]) Vital Signs (Past 12 Hours) Vital Signs Temp Pulse Pulse Pulse Pulse Pulse Pulse 08/26/21 10:27 08/26/21 10:14 100 H 104 H 124 H 122 H 116 H 08/26/21 10:01 91 H 08/26/21 07:11 36.5 C 08/26/21 07:02 08/26/21 04:06 36.6 C 08/26/21 02:40 08/25/21 23:45 36.7 C 08/25/21 22:57 Pulse Pulse Pulse Pulse Resp Resp Resp 08/26/21 10:27 108 H 18 08/26/21 10:14 120 H 103 H 102 H 18 18 08/26/21 10:01 08/26/21 07:11 91 H 20 08/26/21 07:02 91 H 18 08/26/21 04:06 81 18 08/26/21 02:40 74 08/25/21 23:45 73 18 08/25/21 22:57 88 Resp Resp Resp Resp Resp Resp BP 08/26/21 10:27 08/26/21 10:14 26 H 26 H 24 24 24 18 08/26/21 10:01 08/26/21 07:11 119/75 08/26/21 07:02 08/26/21 04:06 08/26/21 02:40 08/25/21 23:45 08/25/21 22:57 BP Pulse Ox Pulse Ox Pulse Ox Pulse Ox Pulse Ox Pulse Ox 08/26/21 10:27 90 08/26/21 10:14 86 L 91 84 L 85 L 90 08/26/21 10:01 08/26/21 07:11 91 08/26/21 07:02 90 08/26/21 04:06 111/71 99 08/26/21 02:40 08/25/21 23:45 103/61 98 08/25/21 22:57 Pulse Ox Pulse Ox Pulse Ox 08/26/21 10:27 08/26/21 10:14 83 L 90 77 L 08/26/21 10:01 08/26/21 07:11 08/26/21 07:02 08/26/21 04:06 08/26/21 02:40 96 08/25/21 23:45 08/25/21 22:57 90 Laboratory Results Laboratory Results - last 24 hr 08/25/21 08/25/21 08/25/21 11:25 16:11 20:39 WBC RBC Hgb Hct MCV MCH MCHC RDW Std Deviation RDW Coeff of Dionte Plt Count Sodium Potassium Chloride Carbon Dioxide Anion Gap BUN Creatinine Est Cr Clr Drug Dosing Est GFR ( Amer) Est GFR (Non-Af Amer) BUN/Creatinine Ratio Glucose POC Glucose 150 H 141 H 154 H Calcium Magnesium 08/26/21 08/26/21 08/26/21 05:59 05:59 07:14 WBC 8.27 RBC 5.68 H Hgb 12.9 Hct 44.8 MCV 78.9 L MCH 22.7 L MCHC 28.8 L RDW Std Deviation 54.2 H RDW Coeff of Dionte 18.9 H Plt Count 197 Sodium 138 Potassium 4.2 Chloride 98 Carbon Dioxide 36 H Anion Gap 4 BUN 16 Creatinine 0.55 L Est Cr Clr Drug Dosing 135.6 Est GFR ( Amer) 114.1 Est GFR (Non-Af Amer) 98.4 BUN/Creatinine Ratio 29.1 H Glucose 86 POC Glucose 87 Calcium 8.8 Magnesium 2.2
[2021-08-26] MEDS ORDERED: METOPROLOL SUCC 50MG EXT REL TAB PO SCH (10:45)
[2021-08-26] MEDS ORDERED: ALBUT/IPRATROP 3MG/0.5MG NEB 3 ML VIAL NEB PRN (10:54)
--- NOTE | 2021-08-26 14:08 | Hospitalist Progress Note ---
Date of Service August 26, 2021 Assessment & Plan (1) Acute on chronic heart failure with preserved ejection fraction (HFpEF): (2) Acute and chronic respiratory failure with hypoxia: (3) Interstitial lung disease: (4) Hypertension: (5) Left bundle branch block: Plan: Patient is a 66 yr female with H/O ILD on 4L of O2 with ext and 2 at HS, chronic hypoxic resp failure, Chronic HFpEF, Pulm HTN, COPD, former tobacco abuser, HTN, HLD, LBBB who presents to ED at referral of Pulm clinic 08/03 to hypoxia. Acute on chronic systolic and diastolic heart failure Acute on chronic Resp Failure with hypoxia Pulmonary hypertension -Last echo 06/21 EF 55%, grade 1 diastolic dysfunction, pulmonary hypertension, elevated PASP, mild TR -Updated Echo showed EF of 40 to 45%, septal motion consistent with conduction abnormality, flattened septum consistent with RV pressure overload, mild global hypokinesis, mildly dilated RV, mild TR, estimated PASP of 53 mmHg, dilated inferior vena cava with reduced collapsibility -CT Chest:Cardiomegaly with evidence of congestive failure. Emphysema with findings of superimposed chronic interstitial lung disease. Groundglass change throughout both lungs likely represents mild pulmonary edema. Correlate clinically for evidence of a superimposed infectious/inflammatory pneumonitis. Trace pleural effusions, right larger than left. Mediastinal and hilar adenopathy is nonspecific and likely related to chronic lung disease. Continue IV Lasix>>Transitioned to oral lasix 40mg daily, spironolactone 12.5mg daily Monitor I's and O's, daily weight Appreciate cardiology input Carvedilol switched to metoprolol Lisinopril switched to losartan Needs follow up with Cardiology in 2-3 weeks NSVT Metoprolol dose increased to 50 mg daily Replete electrolytes as needed Monitor Interstitial lung disease Pulmonary hypertension COPD Procalcitonin negative --Following pulmonology outpatient and had bronchoscopy on 08/08 with negative cytology --Patient was seen by PCP on 08/19/21 and prescribed pred 40mg x 16 days; then 20mg x 15 days then 10mg x 15 days --Patient is started on Anoro Needs polysomnography as outpatient Continue BiPAP nightly and as needed (Needs Outpatient polysomnography as soon as possible upon discharge, to treat my need for BiPAP as outpatient) Discussed with Pulmonology on 08/26/21 Continue supplemental oxygen as needed Taper down prednisone as able Nocturnal oximetry:Needs 4L at bedtime 2 step: Needs 3L at rest and 6 L with activity Needs outpatient polysomnography HTN HLD LBBB Continue asa, statin, SUNNY, beta-melissa Morbid obesity BMI 47.3 DVT px: SQ Lovenox CODE STATUS Full code Admission and Anticipated Discharge Date Admission Date: August 22, 2021 Subjective Patient seen and examined at bedside. Patient doing well today Discussed with Cardiology and Pulmonology today Had 2 step earlier today Reports minimal cough but otherwise no complaints Denies any chest pain, shortness of breath, dizziness, nausea, abdominal pain Review of Systems Review of Systems: All systems reviewed & are unremarkable except as noted in Subjective Physical Exam Physical Exam: Physical Exam: Vitals signs as noted above General Appearance:Morbidly Obese, no apparent distress Head: normocephalic, Atraumatic Eyes: normal inspection, EOMI Neck: supple, Trachea midline Respiratory/Chest: Decreased breath sounds, CTA, No accessory muscle use Cardiovascular: S1, S2, No murmur Abdomen/GI:Soft, Non tender, Bowel sounds present Extremities/Musculoskeletal:normal inspection, B/L LE edema Neurologic/Psych:AAOX3, grossly no focal neurological deficits Skin: normal color, warm Results & Data Results & Data ([facility]) Vital Signs (Past 12 Hours) Vital Signs Temp Pulse Pulse Pulse Pulse Pulse Pulse 08/26/21 11:46 36.5 C 08/26/21 10:27 08/26/21 10:14 100 H 104 H 124 H 122 H 116 H 08/26/21 10:01 91 H 08/26/21 07:11 36.5 C 08/26/21 07:02 08/26/21 04:06 36.6 C 08/26/21 02:40 Pulse Pulse Pulse Pulse Resp Resp Resp 08/26/21 11:46 87 18 08/26/21 10:27 108 H 18 08/26/21 10:14 120 H 103 H 102 H 18 18 08/26/21 10:01 08/26/21 07:11 91 H 20 08/26/21 07:02 91 H 18 08/26/21 04:06 81 18 08/26/21 02:40 74 Resp Resp Resp Resp Resp Resp BP 08/26/21 11:46 08/26/21 10:27 08/26/21 10:14 26 H 26 H 24 24 24 18 08/26/21 10:01 08/26/21 07:11 119/75 08/26/21 07:02 08/26/21 04:06 08/26/21 02:40 BP Pulse Ox Pulse Ox Pulse Ox Pulse Ox Pulse Ox Pulse Ox 08/26/21 11:46 125/78 91 08/26/21 10:27 90 08/26/21 10:14 86 L 91 84 L 85 L 90 08/26/21 10:01 08/26/21 07:11 91 08/26/21 07:02 90 08/26/21 04:06 111/71 99 08/26/21 02:40 Pulse Ox Pulse Ox Pulse Ox 08/26/21 11:46 08/26/21 10:27 08/26/21 10:14 83 L 90 77 L 08/26/21 10:01 08/26/21 07:11 08/26/21 07:02 08/26/21 04:06 08/26/21 02:40 96 Laboratory Results Short CBC 08/26/21 Range/Units 05:59 WBC 8.27 (4.8-10.8) K/uL Hgb 12.9 (12.0-16.0) g/dL Hct 44.8 (37-47) % Plt Count 197 (130-400) K/uL BMP 08/26/21 05:59 Sodium 138 Potassium 4.2 Chloride 98 Carbon Dioxide 36 H BUN 16 Creatinine 0.55 L Glucose 86 Calcium 8.8
--- NOTE | 2021-08-26 14:28 | Discharge Summary ---
Date of Service August 26, 2021 Admission HPI Per Admitting Provider This a 66 yr old F who has a significant PMH of ILD on 4L of O2 with ext and 2 at HS, chronic hypoxic resp failure, Chronic HFpEF, Pulm HTN, COPD, former tobacco abuser, HTN, HLD, LBBB who presents to ED at referral of Pulm clinic 08/03 to hypoxia. Patient has been followed closely by pulmonology secondary to interstitial lung disease. She recently underwent bronchoscopy on 08/08 with negative cytology. Per patient the etiology of interstitial lung disease is not known. She states since June 2021 she has been having increasing difficulty breathing. She has had extensive work-up with pulmonology. Echo in June 2021 revealed preserved EF with diastolic dysfunction, pulmonary pretension and mild tricuspid rotation. States since June she has been having increased shortness of breath with exertion, increased lower extremity swelling and weight gain. In the past week she admits to 5 pound weight gain. Denies any orthopnea or PND, but states she is, "choking in her sleep." She denies any prior history of sleep apnea or being tested for sleep apnea. She complains of a wet cough that is nonproductive. This is chronic. She denies any fever, chills, sweats, lightheadedness, dizziness, chest pain, palpitations, hemoptysis, nausea, vomiting, abdominal pain, change in bowel or urinary habits. She was recently seen by PCP on 08/19 who prescribed her a prolonged prednisone taper. Currently she is on 40 mg daily. She states she was started on prednisone due to generalized aches and pains and to, "help with my lungs." She has been compliant with her medications. She does recall in the past requiring to take Lasix for 1 week, but not on a regular basis. In ED patient made hemodynamically stable although she was hypoxic. She required 4 L of oxygen. Chest x-ray consistent with moderate pulmonary edema. She elevated proBNP at 1055. Her initial troponin was negative. She received 40 mg IV Lasix in ED. Admission Exam Per Admitting Provider Physical Exam Physical Exam: Constitutional: WD/WN, Obese, F, dysnea w/ conversation, vitals as above, NAD, sitting up in bed, pleasant, conversing easily Head: Normocephalic, Atraumatic Eyes: PERRL, conjunctivae normal, anicteric sclerae ENMT: external ear and nose normal, oropharynx normal Neck: trachea midline, no thyromegaly normal visual inspection Respiratory: normal respiratory effort, course breathsounds throughout with exp wheeze/rales, on 4L of O2 via NC. Normal insp/exp effort, no accessory muscle use Cardiovascular: RRR, no murmur, b/l lower ext edema +2, b/l varicosities noted Vessels: no JVD or carotid bruit Chest: normal inspection of chest Abdomen: normal bowel sounds, soft, nontender, no hepatosplenomegaly Musculoskeletal: no cyanosis or clubbing, extremities motor strength 5/5 Skin: no rashes, warm and dry normal turgor Neurologic: PERRL, EOMI, accommodation nl, no face palsy, no dysarthria CN's II-XI intact bilaterally and moves all extremities Psychiatric: A+Ox3, euthymic affect Lymphatic: no cervical or axillary lymphadenopathy : deferred Principal Diagnosis Acute on chronic systolic and diastolic heart failure Acute on chronic Resp Failure with hypoxia Pulmonary hypertension Interstitial lung disease COPD Suspected KOSTAS Discharge Data Allergies Allergy/AdvReac Type Severity Reaction Status Date / Time No Known Allergies Allergy Unverified 08/22/21 15:45 Consultations 08/22/21 16:07 ED Decision to Admit Stat 08/22/21 18:21 Consult Cardiology Routine 08/23/21 11:06 Consult Pulmonology Routine Ordered Studies 08/23/21 16:38 CT chest diagnostic wo con Routine Hospital Course (1) Acute on chronic heart failure with preserved ejection fraction (HFpEF): (2) Acute and chronic respiratory failure with hypoxia: (3) Interstitial lung disease: (4) Hypertension: (5) Left bundle branch block: Patient is a 66 yr female with H/O ILD on 4L of O2 with ext and 2 at HS, chronic hypoxic resp failure, Chronic HFpEF, Pulm HTN, COPD, former tobacco abuser, HTN, HLD, LBBB who presents to ED at referral of Pulm clinic / to hypoxia. Acute on chronic systolic and diastolic heart failure Acute on chronic Resp Failure with hypoxia Pulmonary hypertension -Last echo 06/21 EF 55%, grade 1 diastolic dysfunction, pulmonary hypertension, elevated PASP, mild TR -Updated Echo showed EF of 40 to 45%, septal motion consistent with conduction abnormality, flattened septum consistent with RV pressure overload, mild global hypokinesis, mildly dilated RV, mild TR, estimated PASP of 53 mmHg, dilated inferior vena cava with reduced collapsibility -CT Chest:Cardiomegaly with evidence of congestive failure. Emphysema with findings of superimposed chronic interstitial lung disease. Groundglass change throughout both lungs likely represents mild pulmonary edema. Correlate clinically for evidence of a superimposed infectious/inflammatory pneumonitis. Trace pleural effusions, right larger than left. Mediastinal and hilar adenopathy is nonspecific and likely related to chronic lung disease. Continue IV Lasix>>Transitioned to oral lasix 40mg daily, spironolactone 12.5mg daily Monitor I's and O's, daily weight Appreciate cardiology input Carvedilol switched to metoprolol Lisinopril switched to losartan Needs follow up with Cardiology in 2-3 weeks NSVT Metoprolol dose increased to 50 mg daily Replete electrolytes as needed Monitor Interstitial lung disease Pulmonary hypertension COPD Procalcitonin negative --Following pulmonology outpatient and had bronchoscopy on 08/08 with negative cytology --Patient was seen by PCP on 08/19/21 and prescribed pred 40mg x 16 days; then 20mg x 15 days then 10mg x 15 days --Patient is started on Anoro Needs polysomnography as outpatient Continue BiPAP nightly and as needed (Needs Outpatient polysomnography as soon as possible upon discharge, to treat my need for BiPAP as outpatient) Discussed with Pulmonology on 08/26/21 Continue supplemental oxygen as needed Taper down prednisone as able Nocturnal oximetry:Needs 4L at bedtime 2 step: Needs 3L at rest and 6 L with activity Needs outpatient polysomnography HTN HLD LBBB Continue asa, statin, SUNNY, beta-melissa Morbid obesity BMI 47.3 DVT px: SQ Lovenox CODE STATUS Full code Total Time Total Time Spent Total Time Spent (In Minutes): 55 minutes Discharge Plan Discharge Items Patient Disposition: Home - Self-Care Reason For Visit: A/C HFPEF Discharge Diagnosis: Acute on chronic systolic and diastolic heart failure Acute on chronic Resp Failure with hypoxia Pulmonary hypertension Interstitial lung disease COPD Suspected KOSTAS Activity: Per Instructions section Exercise/Sports: Wait until after follow-up appointment Non-emergency contact: Primary Care Provider, [facility] Provider Call non-emergency contact if: you have any medication questions, your symptoms worsen, your pain is concerning for you and you have a fever Follow-up/Referrals: Babar Queen MD [Primary Care Provider] - (Date & Time 08/30/2021 8:00 AM Provider Loree Mejia PA-C Department [facility] ) Diet: Carb Consistent or DM2, Heart Healthy and Low Sodium (2gm) Addtl Attending Provider Instructions: Follow-up with your primary care physician on 08/30/2021 8:00 AM as scheduled Follow-up with your customer success manager Dr. Fisher in 2-3 weeks as advised Follow-up with your cookie padder in 2 to 3 weeks as advised. --- Use oxygen via nasal cannula: 4 L at bedtime, 3 L at rest and 6 L with activity as advised. ---Get Outpatient sleep study (polysomnography) as soon as possible to rule out obstructive sleep apnea and follow-up with your cookie padder for further recommendations. --Your Medications as adjusted as recommended by your customer success manager. Please take them regularly. Seek immediate medical attention if your symptoms reoccur or worsen Please take all medications as instructed on discharge list below. Please call if you have any questions or problems. You can reach a [facility] hospitalist on duty at [facility] 24 hours a day by calling [phone] Call your Primary Care doctor if any of the following symptoms or problems start or get worse: * Shortness of breath or difficulty breathing * Wake up at night short of breath * Chest pain * Cough * Swelling of your hands, feet, or legs * More fatigued or tired with your normal activity * Palpitations - sudden fast heart beats WEIGHT * Weigh yourself every morning after using the bathroom. * Use the same scale. * Wear the same amount of clothing. * Write your weight down on a chart. * Call your Primary Care doctor if you gain more than 2-3 pounds in 1-2 days. MEDICATIONS * Use this discharge instruction sheet for medication instructions. * Take your medications at the time your doctor ordered. * Do not skip a dose of your medicines. * If you miss a dose of medicine, take it as soon as possible, but DO NOT DOUBLE A DOSE. * Read your medicine information when you get home. * Know all of the side effects of your medicine. If in doubt, ask your pharmacist * Call your Primary Care doctor's office if you have any side effects. * Be sure all of your doctors know what medicine and herbs you take (including cold, flu, and herbal medicine). Take the following with you to your follow-up doctor appointments: * Weight Chart * Medication List * List of questions Do not drink excessive alcohol, beer or wine. Pending Studies at Discharge: No Stand-Alone Forms: My [facility] [employer], Smoking Cessation Medications and DC Order Prescriptions: New losartan 50 mg Tablet 50 mg PO QAM Qty: 30 RF: 1 furosemide 40 mg Tablet 40 mg PO QAM Qty: 30 RF: 1 metoprolol succinate 50 mg Tablet Extended Release 24 Hr 50 mg PO QAM Qty: 30 RF: 1 spironolactone 25 mg Tablet 12.5 mg PO QAM Qty: 30 RF: 1 Anoro Ellipta 62.5-25 mcg/actuation Blister With Device 1 puff inhalation DAILY Qty: 1 RF: 1 Continued aspirin 325 mg Tablet 325 mg PO DAILY RF: 0 multivitamin [Multiple Vitamins] Tablet 1 tab PO DAILY RF: 0 omeprazole 20 mg capsule,delayed release(DR/EC) 20 mg PO DAILY RF: 0 albuterol sulfate 90 mcg/actuation Hfa Aerosol Inhaler 2 puff INHALATION QID PRN (Reason: Shortness Of Breath Or Wheezing) RF: 0 prednisone 20 mg tablet 0 mg PO .DAILY UD RF: 0 atorvastatin 20 mg Tablet 20 mg PO DAILY RF: 0 Discontinued lisinopril 2.5 mg Tablet 2.5 mg PO DAILY RF: 0 carvedilol 3.125 mg tablet 3.125 mg PO BID RF: 0 Discharge Orders: Discharge Order (Routine); Ordered 08/26/21 Ordered By: Emmanuel Giles Admission Data Admit Date/Time: 08/22/21 16:47 Attending Provider: Emmanuel Giles Admit Provider: Emmanuel Giles Primary Care Provider: Babar Queen Other Providers: Emmanuel Giles ; Ethan Fisher [place]
[2021-08-27] MEDS ORDERED: FUROSEMIDE 40 MG TAB PO SCH (09:00)
[2021-08-27] MEDS ORDERED: SPIRONOLACTONE 12.5 MG TAB PO SCH (09:00)
== END 2021-08-26 16:32 | disposition home or self-care (01) | DRG 291 ==
LOC: ED 11:56 → SUATTDRO 16:47 → EDINP 16:47 → 2S 08-23 18:21